=== PATIENT | female | born 1950 | race African-American/Black ===

== ENCOUNTER 2025-10-27 08:45 | Outpatient (CLI) | payer MEDICARE, MEDICAID, SELFPAY ==
--- NOTE | ~2025-10-27 | XR_ITS ---
EXAMINATION: XR ankle RT min 3V, 10/27/2025 9:14 [facility] [employer] [facility] HISTORY: RT MEDIAL MALLEOLUS ANKLE PAIN x1 WK COMPARISON: No comparisons available. Findings: No acute fracture or malalignment. Calcaneal spur. Severe Achilles enthesopathy. Soft tissues unremarkable. Impression: No acute fracture or malalignment. Reviewed, dictated and finalized at location [facility] Impression: No acute fracture or malalignment.
== END 2025-10-27 08:46 | disposition home or self-care (01) ==
PROVIDERS: PCP Internal Medicine Infectious Disease; Visit Provider Internal Medicine Infectious Disease
DX: M25.571 Pain in right ankle and joints of right foot (principal)
CPT/HCPCS: 73610

== ENCOUNTER 2025-11-12 13:32 | Emergency (ER) | payer MEDICARE, MEDICAID, SELFPAY ==
[2025-11-12] VITALS (17 sets, daily range): BP systolic 143–181; BP diastolic 87–100; PULSE 80–119; RESP 12–27; TEMP 36.6; O2SAT 90–98
--- NOTE | ~2025-11-12 | XR_ITS ---
EXAMINATION: XR chest 2V DATE: 11/12/2025 15:02 INDICATION: Cough. Weakness. TECHNIQUE: Frontal and lateral views of the chest were obtained. COMPARISON: Chest x-ray dated 10/14/2012. FINDINGS: Heart size is normal. Severe atherosclerotic aorta. Significant emphysematous changes involving upper two thirds of both lungs. No acute pulmonary findings. IMPRESSION: 1. Significant emphysema involving upper two thirds of both lungs. Severe atherosclerotic aorta. Reviewed, dictated and finalized at location T. PRIMER POWDER BLENDER IMPRESSION: 1. Significant emphysema involving upper two thirds of both lungs. Severe ather osclerotic aorta.
--- NOTE | ~2025-11-12 | CT_ITS ---
EXAMINATION: CTA chest PE abdomen pel DATE: 11/12/2025 16:38 INDICATION: Headache. Cardiomegaly. Shortness of breath. Liver mass suspected. Reason for suspicion of the liver mass is not provided.. TECHNIQUE: Computed tomography angiography (CTA) of the chest was performed with 100 mL Omnipaque-350 intravenous contrast timed to evaluate the pulmonary arteries. Coronal maximum intensity projection 3D-reconstructions were created by the technologist. Computed tomography (CT) of the abdomen and pelvis was performed with intravenous contrast. Automated exposure control and iterative reconstruction technique were employed. The dose-length product was 639.05 mGy-cm. COMPARISON: Chest x-ray dated 11/12/2025. No prior imaging studies of the abdomen and pelvis are available. FINDINGS: The chest, severe centrilobular pattern of emphysema of lungs. 3 cm size bulla is noted in the left upper lobe. No consolidation. Prominent central pulmonary arteries due to pulmonary arterial hypertension. No evidence of pulmonary emboli. Severe atherosclerosis of thoracic aorta. Below the diaphragm, normal size liver and the spleen. The gallbladder, bile ducts, pancreas and kidneys do not show focal lesions. Significant calcific atherosclerotic changes at the origin of right renal artery. Midline paraumbilical hernia is noted containing a loop of transverse colon. No evidence of bowel obstruction. No inflammatory changes in the pelvis. Normal size appendix. IMPRESSION: 1. No evidence of pulmonary emboli. Evidence of severe emphysema of lungs with pulmonary arterial hypertension. 2. Significant atherosclerotic changes of thoracic aorta. 3. No acute findings in the upper abdomen and pelvis. Midline paraumbilical hernia containing a loop of transverse colon. No evidence of bowel obstruction. 4. Normal size liver and spleen without focal lesions of the liver. Reviewed, dictated and finalized at location T. T EXPERIENCE SPECIALIST IMPRESSION: 1. No evidence of pulmonary emboli. Evidence of severe emphysema of lungs with pulmonary arterial hypertension. 2. Significant atherosclerotic changes of thoracic aorta. 3. No acute findings in the upper abdomen and pelvis. Midline paraumbilical her nancy containing a loop of transverse colon. No evidence of bowel obstruction. 4. Normal size liver and spleen without focal lesions of the liver.
--- OUTSIDE RECORDS SUMMARY | 2025-11-12 13:34 | XMS_ITS | Encounter Summary ---
Author Organization [facility] Address [address] [place] [address] Care Team Providers Care Juvenile Justice Officer Name Role Phone Racheal Centeno MD Primary Care Provider Encounter Details Date Type Department Care Team (Late st Contact Info) Description 01/06/2025 Telephone [facility] - Dermatology [address] [place] [address], [place] [phone] Deonte Merrill MD [address] [place] [address] 3 [place] [address] Social History Tobacco Use Types Packs/Day Years Used Date Smoking Tobacco: Former Cigarettes 0 Q uit: 12/20/2011 Alcohol Use Standard Drinks/Week Comments No 0 (1 standard drink = 0.6 oz pur e alcohol) Comments Unknown Sex and Gender Information Value Date Recorded Sex Assigned at Not on file Legal Sex Female 6:21 PM FAMILY SPECIALIST Gender Identity Not on file Sexual Orientation Not on file documented as of this encounter Progress Notes * Jen Fowler - 07/26/2025 2:37 PM CDT Medication Prior Authorization: Medication: Dupixent 300mg/2ml pen Status: Approved 07/20/25 through 11/22/25 Submitted via: Cover My Meds (Mcclelland: [id number]) Insurance: [employer] (p: [phone]) (f: [phone]) Case/Reference number: ID: [id number] RX Card Billing Info: BIN: [id number] PCN: [id number] GROUP: COS ID: [id number] JOSIANE approval notice uploaded to media tab. Routed approval details to [facility] Specialty. Jen Fowler- Pharmacy Business Office Technology Instructor (Dermatology) * Jen Fowler - 01/06/2025 2:28 PM CST Medication Prior Authorization: Medication: Dupixent 300mg/2ml pen Status: Approved 01/06/25 through 07/06/25 Submitted via: Cover My Meds (Mcclelland: [id number]) Insurance: [employer] (p: [phone]) (f: [phone]) Case/Reference number: ID: [id number] RX Card Billing Info: BIN: [id number] PCN: [id number] GROUP: COS ID: [id number] PA approval notice uploaded to media tab. Routed approval details to [facility] Specialty and Aria. Jen Fowler- Pharmacy Business Office Technology Instructor (Dermatology) LY SPECIALIST documented in this encounter Miscellaneous Notes * Telephone Encounter - Jen Fowler - 07/20/2025 1:16 PM CDT PA submitted forcontinuation of therapy Dupixent 300mg/2ml pen maintenance dose of 300mg every 2 weeks via [employer] [facility] currently waiting on decision. Mcclelland: [id number] Provider:[id number] Jen Fowler (Jonak) [facility] - Pharmacy Business Office Technology Instructor * Telephone Encounter - Jen Fowler - 01/06/2025 2:05 PM CST PA submitted fornew start Dupixent 300mg/2ml pen for loading dose of 600mg and maintenance dose of 300mg every 2 weeks via [employer] [facility] [employer] [facility] currently waiting on decision. Mcclelland: [id number] Provider:[id number] (Desirae) Jen Fowler [employer]izer - Pharmacy Business Office Technology Instructor LY SPECIALIST documented in this encounter Plan of Treatment Upcoming Encounters Date Type Department Care Team (Late st Contact Info) Description 03/28/2026 9:00 AM CDT Office Visit [facility] - Dermatology [address] [place] [address], [place] [address] Deonte Merrill MD [address] [place] [address] 3 [place] [phone] documented as of this encounter Visit Diagnoses Not on filedocumented in this encounter Care Teams Juvenile Justice Officer Relationship Specialty [place] [address] [place] [phone] PCP - General Gastroenterology 07/12/25 documented as of this encounter
--- OUTSIDE RECORDS SUMMARY | 2025-11-12 13:34 | XMS_ITS | Clinical Summary ---
Author Organization [facility] Address [address] [place] [address] Care Team Providers Care Jewel Stringer Name Role Phone Racheal Centeno MD Primary Care Provider [phone] Source Comments [facility],non-owned Affiliates and Associated Physician Practices is amultiple site organization consisting of ambulatory clinics and hospital sitesin [place], [place], [place] and [place]. This disclosure is being madepursuant to the Care Everywhere program and may not contain all information available regarding this patient. Last updated 18.[facility] Allergies Active Allergy Reactions Criticality Noted Date Comments Sulfa Drugs Swelling Low 01/20/2015 Medications * Be aware that medications may not be up to date on this document. Alwaysverify current medications with the patient. amLODIPine (Norvasc) 10 MG tablet Take 1 (one) tablet by mouth once daily 3 Active atorvastatin (Lipitor) 10 MG tablet TAKE ONE TABLET BY MOUTH ONCE DAILY AT DINNER. 5 Active Breo Ellipta 200-25 MCG/ACT inhaler INHALE ONE PUFF BY MOUTH ONCE DAILY DIRECTED 5 Active hydrOXYzine HCl (Atarax) 10 MG tablet Take 1 (one) tablet by mouth 2 times daily 4 Active linaGLIPtin (Tradjenta) 5 MG tablet TAKE 1 TABLET BY MOUTH DAILY WITH A MEAL 3 Active lisinopril (Prinivil; Zestril) 20 MG tablet Take 1 (one) tablet by mouth once daily 3 Active clobetasol (Temovate) 0.05 % ointmentIndica tions:Prurigo nodularis Apply to rash on the trunk and extremities twice daily as needed. Use for a maximum for 2 weeks then take a 3-4 day break before resuming. Avoid face and groin. 60 g 5 5 Active dupilumab (Dupixent) 300 MG/2ML prefilled penIndications :Prurigo nodularis Inject 2 mL subcutaneously every 14 days Starting on day 14 4 mL 11 5 Active Social History Tobacco Use Types Packs/Day Years Used Date Smoking Tobacco: Former Cigarettes 0 Q uit: 12/20/2011 Alcohol Use Standard Drinks/Week Comments No 0 (1 standard drink = 0.6 oz pur e alcohol) Comments Unknown Sex and Gender Information Value Date Recorded Sex Assigned at Not on file Legal Sex Female 6:21 PM LARD MIXER Gender Identity Not on file Sexual Orientation Not on file Last Filed Vital Signs Vital Sign Reading Time Taken Comments Blood Pressure 138/89 01/20/2015 10:14 AM LARD MIXER Pulse 86 01/20/2015 10:45 AM LARD MIXER Temperature 36.7 C (98.1 F) 01/20/2015 10:14 AM LARD MIXER Respiratory Rate 16 01/20/2015 10:45 AM LARD MIXER Oxygen Saturation 98% 01/20/2015 10:14 AM LARD MIXER Inhaled Oxygen Concentration - - Weight 75.8 kg (167 lb) 01/20/2015 10:14 AM LARD MIXER Height 162.6 cm (5' 4) 01/20/2015 10:14 AM LARD MIXER Body Mass Index 28.67 01/20/2015 10:14 AM LARD MIXER Plan of Treatment Upcoming Encounters Date Type Department Care Team (Late st Contact Info) Description 03/28/2026 9:00 AM CDT Office Visit [facility] - Dermatology [address] [place] [address], [place] [phone] Deonte Merrill MD [address] [place] [address] 3 [place] [address] Health Maintenance Due Date Last Done Comments COLOGUARD (AGES 45-75) - COLON CA SCREENING 1951 COLON MONITORING 1951 COLONOSCOPY - COLON CA SCREENING 1950 CT COLONOGRAPHY - COLON CA SCREENING 1950 Colorectal Cancer Screening 1950 FIT - COLON CA SCREENING 1950 FLEX SIG - COLON CA SCREENING 1950 MAMMOGRAM 1950 HEPATITIS C SCREENING 04/08/1969 DTAP/TDAP/TD VACCINES (1 - Tdap) 1970 PNEUMOCOCCAL VACCINE 50+ (1 of 1 - PCV) 2001 ZOSTER VACCINE (1 of 2) 2001 DEPRESSION SCREENING 11/23/2024 MEDICARE AWV CALENDAR YEAR 2024 COVID-19 VACCINE ( season) 2025 11/05/2021, 03/08/2021, 02/08/2021 INFLUENZA VACCINE (#1) 2025 , 09/20/2020, 02/01/2020, Additional history exists Respiratory Syncytial Virus (RSV) Vaccine Pt: or over 60 yrs (1 - 1-dose 75+ series) 2026 BONE DENSITY TESTING Completed 03/13/2025 HEPATITIS B VACCINE Aged Out No longe r eligible based on patient's age to complete this topic HIB VACCINE Aged Out No longer eligi ble based on patient's age to complete this topic HPV VACCINE Aged Out No longer eligi ble based on patient's age to complete this topic MENINGOCOCCAL (Group B) VACCINE SHARED DECISION-MAKING Aged Out No longer eligible based on patient's age to complete this topic MENINGOCOCCAL GROUPS A/C/Y/W VACCINE Aged Out No longer eligible based on patient's age to complete this topic Insurance MANAGED MEDICARE ADV Care Teams Jewel Stringer Relationship Specialty Start Date End Date Racheal Centeno MD [address] [place] [address] PCP - General Gastroenterology 07/12/25
--- OUTSIDE RECORDS SUMMARY | 2025-11-12 13:34 | XMS_ITS | Data Portability ---
Author Organization [facility] ROSIORoberto Nunez Address [address] [facility] [place] [address] Care Team Providers Care Carbon Grinder Name Role Phone U DERMATOLOGY [employer] SHILPI SWAN Head [employer]'S [employer] Coach Unavailable Assessment No assessment recorded. Plan of Treatment Reminders Order Date Submit Date Provider Last Modified By Organization Details Last Modified Time Details Appointments ANY 15 2025 11:15A Guillermo Miranda MD Not available Not available Not available Lab HbA1c (hemoglo bin A1c), blood 2024 026 [employer] [facility], [address] [place] [address], [address], [place], [address], 11/02/2025 12:25:25 lipid panel, serum 2024 026 [email or web address] [facility], [address] [place] [address], [facility] [address], [place], [address], 11/02/2025 12:25:25 uric acid, serum or plasma 2024 025 JAYLEN [facility], [address] [place] [address], [address], [place], [address], 10/06/2025 08:40:09 CBC w/ auto diff 2024 025 JAYLEN [facility], [address] [place] [address], [facility] [address], [place], [address], 10/06/2025 08:40:10 HbA1c (hemoglo bin A1c), blood 2024 025 JAYLEN MARINELLI, [address], [address], [place], [address], 07/06/2025 13:13:51 lipid panel, serum 2024 025 JAYLEN [facility]MOSILLORP, [address], [address], [place], [address], 07/06/2025 13:13:48 albumin/ creatini ne, mass ratio, urine 2024 025 JAYLEN MARINELLI, [address], [address], [place], [address], 07/06/2025 13:13:46 microalb umin/cre atinine, mass ratio, urine 2024 025 JAYLEN MARINELLI, [address], [address], [place], [address], 08/02/2025 13:17:19 CBC w/ auto diff 2024 025 JAYLEN HERMOSILLOANNAMARIE, [address], [address], [place], [address], 07/06/2025 13:13:54 urinalys is macro (dipstic k) panel, urine 2024 025 JAYLEN MARINELLI, [address], [address], [place], [address], 07/06/2025 13:13:52 CMP, serum or plasma 2024 025 JAYLEN HERMOSILLOANNAMARIE, Judy [address], [address], [place], [address], 07/06/2025 13:13:50 TSH, ultra-se nsitive, serum 2024 025 [place] [facility], [address] [facility], [address], [place], [address], 12/02/2024 08:25:03 Referral diabetic ophthalm ology referral 2024 025 [email or web address], [address], [place], [address], 10/06/2025 13:30:29 dermatol ogist referral 2024 025 [facility], [address] [place], [address], 01/13/2025 17:58:02 Procedures None recorded . Surgeries None recorded . Imaging XR, ankle - Pain, medial malleolu s 2024 025 [facility] (Imaging), [address] [place], [place] [address] [address] [place] [address], [address], 10/27/2025 10:30:09 Medication Orders meloxica m 7.5 mg tablet 2024 025 [facility] [id number] In [facility], [address] [facility], [place], [address], 10/05/2025 12:32:09 ketorola c 60 mg/2 mL intramus cular solution 2024 025 [email or web address] Not available 11/02/2025 11:51:44 Patient TargetsNo targets recorded. Patient Instructions Encounter Date Encounter Id Patient Instructions Last Modified By Organization Details Last Modified Time 03/16/2025 [id number] learning about high blood pressure [email or web address] Not available 03/16/2025 11:40:13 chronic obstructive pulmonary disease (COPD): care instructions [email or web address] Not available 03/16/2025 11:40:13 learning about copd and how to prevent lung infections [email or web address] Not available 03/16/2025 11:40:13 07/05/2025 [id number] learning about type 2 diabetes oajao Not available 07/05/2025 14:44:39 type 2 diabetes: care instructions oajao Not available 07/05/2025 14:44:39 learning about high blood pressure oajao Not available 07/05/2025 14:44:39 chronic obstructive pulmonary disease (COPD): care instructions oajao Not available 07/05/2025 16:56:50 learning about copd and how to prevent lung infections oajao Not available 07/05/2025 16:56:50 Labs Dermatolog y follow up Dentist Ophthalmology Follow up in 4 months for a MAWV oajao Not available 07/05/2025 14:45:32 10/05/2025 [id number] A healthy lifestyle: care instructions oajao Not available 10/05/2025 12:12:00 Ophthalmology as referred Xray Labs CT scan report from [facility] Note from Dr Swan (Nephrology) ER report from [facility] Meloxicam Follow up in 4 weeks oajao Not available 10/05/2025 14:10:25 11/02/2025 [id number] learning about type 2 diabetes oajao Not available 11/02/2025 12:24:53 type 2 diabetes: care instructions oajao Not available 11/02/2025 12:24:53 advance care planning: care instructions oajao Not available 11/02/2025 12:51:34 preventing falls : care instructions oajao Not available 11/02/2025 12:51:34 Quitting Tobacco : Care Instructions oajao Not available 11/02/2025 12:51:34 Medicare Wellnes s Preventive Checklist oajao Not available 11/02/2025 12:51:34 eating healthy foods: care instructions oajao Not available 11/02/2025 12:51:34 AD8 Dementia Screening Interview oajao Not available 11/02/2025 12:51:34 August 28, 2025 CT scan and ER reports from [facility] MRI (Scheduled) Labs in December, Follow up in 3 months and PRN oajao Not available 11/02/2025 12:26:37 Reason for Referral [employer] Referral for P ruritic disorder of skin Recurrent pruritic lesions Referring Physician: Racheal Centeno, Internal Medicine, Encounter Date: 12/01/2024 Diabetic Ophthalmology Refer ral for Type 2 diabetes mellitus HBA1C 6.9% Referring Physician: Ruth Miranda, Internal Medicine, Encounter Date: 07/05/2025 Results Created Date Observation Date Name Description Value Unit Range Abnormal Flag Note LastModifiedBy Organization Detail LastModifiedTime 12/01/19 25 12/02/2024 TSH TSH 2.020 uIU/m L 0.450- 4.500 Not Available [facility] ([facility]) [address] [place], [address], 12/02/2024 08:25:03 07/05/20 25 07/06/2025 ALBUM IN/CR EATIN INE RATIO ,URIN E creatinine, urine 146.9 mg/dL notest ab. Not Available [facility] ([facility]) [address] [place], [address], 07/06/2025 13:13:46 07/05/20 25 07/06/2025 ALBUM IN/CR EATIN INE RATIO ,URIN E albumin, urine 4.1 ug/mL notest ab. Not Available [facility] ([facility]) [address] [place], [address], 07/06/2025 13:13:46 07/05/20 25 07/06/2025 ALBUM IN/CR EATIN INE RATIO ,URIN E alb/creat ratio 3 mg/g_ creat 0-29 Lilly l: 0 - 29 Moder ately incre ased: 30 - 300 Sever laz incre ased: >300 Not Available [facility] ([facility]) [address] [place], [address], 07/06/2025 13:13:46 07/05/20 25 07/06/2025 LIPID PANEL cholesterol, total 127 mg/dL 100-19 9 Not Available [facility] ([facility]) [address] [place], [address], 07/06/2025 13:13:48 07/05/20 25 07/06/2025 LIPID PANEL triglyceride s 95 mg/dL 0-149 Not Available [facility] ([facility]) [address] [facility], [place], [address], 07/06/2025 13:13:48 07/05/20 25 07/06/2025 LIPID PANEL HDL cholesterol 49 mg/dL >39 Not Available [facility] ([facility]) [address] [facility], [place], [address], 07/06/2025 13:13:48 07/05/20 25 07/06/2025 LIPID PANEL VLDL cholesterol richy 18 mg/dL 5-40 Not Available [facility] ([facility]) [address] [facility], [place], [address], 07/06/2025 13:13:48 07/05/20 25 07/06/2025 LIPID PANEL LDL chol calc ([facility]) 60 mg/dL 0-99 Not Available [facility] ([facility]) [address] [facility], [place], [address], 07/06/2025 13:13:48 07/05/20 25 07/06/2025 MICRO SCOPI C EXAMI NATIO N WBC NONE SEEN /hpf 0-5 Not Available [facility] ([facility]) [address] [facility], [place], [address], 07/06/2025 13:13:49 07/05/20 25 07/06/2025 MICRO SCOPI C EXAMI NATIO N RBC 0-2 /hpf 0-2 Not Available [facility] ([facility]) [address] [place], [address], 07/06/2025 13:13:49 07/05/20 25 07/06/2025 MICRO SCOPI C EXAMI NATIO N epithelial cells (non renal) 0-10 /hpf 0-10 Not Available [facility] ([facility]) [address], [place], [address], 07/06/2025 13:13:49 07/05/2007/06/2025 MICRO SCOPI C EXAMI NATIO N casts NONE SEEN /lpf nonese en Not Available [facility] ([facility]) [address], [place], [address], 07/06/2025 13:13:49 07/05/20 25 07/06/2025 MICRO SCOPI C EXAMI NATIO N bacteria NONE SEEN nonese en/few Not Available [facility] ([facility]) [address] [facility], [place], [address], 07/06/2025 13:13:49 07/05/20 25 07/06/2025 CMP14 +EGFR glucose 98 mg/dL 70-99 Not Available [facility] ([facility]) [address] [facility], [place], [address], 07/06/2025 13:13:50 07/05/2007/06/2025 CMP14 +EGFR BUN 22 mg/dL 8-27 Not Available [facility] ([facility]) [address] [facility], [place], [address], 07/06/2025 13:13:50 07/05/2007/06/2025 CMP14 +EGFR creatinine 1.07 mg/dL 0.57-1 .00 above high normal Not Available [facility] ([facility]) [address] [facility], [place], [address], 07/06/2025 13:13:50 07/05/2007/06/2025 CMP14 +EGFR eGFR 55 mL/mi n/1.7 3 >59 below low normal Not Available [facility] ([facility]) [address] [facility], [place], [address], 07/06/2025 13:13:50 07/05/20 25 07/06/2025 CMP14 +EGFR BUN/creatini ne ratio 21 12-28 Not Available [facility] ([facility]) [address] [place], [address], 07/06/2025 13:13:50 07/05/2007/06/2025 CMP14 +EGFR sodium 140 mmol/ L 134-14 4 Not Available [facility] ([facility]) [address] [facility], [place], [address], 07/06/2025 13:13:50 07/05/20 25 07/06/2025 CMP14 +EGFR potassium 3.3 mmol/ L 3.5-5. 2 below low normal Not Available [facility] ([facility]) [address] [facility], [place], [address], 07/06/2025 13:13:50 07/05/20 25 07/06/2025 CMP14 +EGFR chloride 99 mmol/ L 96-106 Not Available [facility] ([facility]) [address] [place], [address], 07/06/2025 13:13:50 07/05/2007/06/2025 CMP14 +EGFR carbon dioxide, total 26 mmol/ L 20-29 Not Available [facility] ([facility]) [address] [place], [address], 07/06/2025 13:13:50 07/05/2007/06/2025 CMP14 +EGFR calcium 9.6 mg/dL 8.7-10 .3 Not Available [facility] ([facility]) [address] [place], [address], 07/06/2025 13:13:50 07/05/20 25 07/06/2025 CMP14 +EGFR protein, total 6.9 g/dL 6.0-8. 5 Not Available [facility] ([facility]) [address] [place], [address], 07/06/2025 13:13:50 07/05/20 25 07/06/2025 CMP14 +EGFR albumin 4.3 g/dL 3.8-4. 8 Not Available [facility] ([facility]) [address] [place], [address], 07/06/2025 13:13:50 07/05/20 25 07/06/2025 CMP14 +EGFR globulin, total 2.6 g/dL 1.5-4. 5 Not Available [facility] ([facility]) [address] [place], [address], 07/06/2025 13:13:50 07/05/2007/06/2025 CMP14 +EGFR bilirubin, total 0.3 mg/dL 0.0-1. 2 Not Available [facility] ([facility]) [address] [place], [address], 07/06/2025 13:13:50 07/05/20 25 07/06/2025 CMP14 +EGFR alkaline phosphatase 137 IU/L 44-121 above high normal Not Available [facility] ([facility]) [address] [place], [address], 07/06/2025 13:13:50 07/05/20 25 07/06/2025 CMP14 +EGFR AST (SGOT) 16 IU/L 0-40 Not Available [facility] ([facility]) [address] [place], [address], 07/06/2025 13:13:50 07/05/20 25 07/06/2025 CMP14 +EGFR ALT (SGPT) 16 IU/L 0-32 Not Available [facility] ([facility]) [address] [place], [address], 07/06/2025 13:13:50 07/05/20 25 07/06/2025 HEMOG LOBIN A1C hemoglobin A1C 6.5 % 4.8-5. 6 above high normal Predi abete s: 5.7 - 6.4 Diabe tal: >6.4 Glyce luis manuel contr ol for adult s with diabe tal: <7.0 Not Available [facility] ([facility]) [address] [facility], [place], [address], 07/06/2025 13:13:51 07/05/20 25 07/06/2025 URINA LYSIS , ROUTI NE specific gravity 1.018 1.005- 1.030 Not Available [facility] ([facility]) [address] [facility], [place], [address], 07/06/2025 13:13:52 07/05/2007/06/2025 URINA LYSIS , ROUTI NE pH 5.5 5.0-7. 5 Not Available [facility] ([facility]) [address] [facility], [place], [address], 07/06/2025 13:13:52 07/05/2007/06/2025 URINA LYSIS , ROUTI NE urine-color YELLOW yellow Not Available [facility] ([facility]) [address] [place], [address], 07/06/2025 13:13:52 07/05/2007/06/2025 URINA LYSIS , ROUTI NE appearance CLEAR clear Not Available [facility] ([facility]) [address] [facility], [place], [address], 07/06/2025 13:13:52 07/05/2007/06/2025 URINA LYSIS , ROUTI NE WBC esterase 1+ negati ve abnormal Not Available [facility] ([facility]) [address] [place], [address], 07/06/2025 13:13:52 07/05/2007/06/2025 URINA LYSIS , ROUTI NE protein NEGATI VE negati ve/tra ce Not Available [facility] ([facility]) [address] [place], [address], 07/06/2025 13:13:52 07/05/20 25 07/06/2025 URINA LYSIS , ROUTI NE glucose NEGATI VE negati ve Not Available [facility] ([facility]) [address] [place], [address], 07/06/2025 13:13:52 07/05/20 25 07/06/2025 URINA LYSIS , ROUTI NE ketones NEGATI VE negati ve Not Available [facility] ([facility]) [address] [place], [address], 07/06/2025 13:13:52 07/05/2007/06/2025 URINA LYSIS , ROUTI NE occult blood NEGATI VE negati ve Not Available [facility] ([facility]) [address] [place], [address], 07/06/2025 13:13:52 07/05/20 25 07/06/2025 URINA LYSIS , ROUTI NE bilirubin NEGATI VE negati ve Not Available [facility] ([facility]) [address] [place], [address], 07/06/2025 13:13:52 07/05/20 25 07/06/2025 URINA LYSIS , ROUTI NE urobilinogen ,semi-qn 0.2 mg/dL 0.2-1. 0 Not Available [facility] ([facility]) [address] [place], [address], 07/06/2025 13:13:52 07/05/20 25 07/06/2025 URINA LYSIS , ROUTI NE nitrite, urine NEGATI VE negati ve Not Available [facility] ([facility]) [address] [place], [address], 07/06/2025 13:13:52 07/05/20 25 07/06/2025 URINA LYSIS , ROUTI NE microscopic examination SEE BELOW: Micro scopi c was indic ated and was perfo rmed. Not Available [facility] ([facility]) [address] [facility], [place], [address], 07/06/2025 13:13:52 07/05/2007/06/2025 CBC WITH DIFFE RENTI AL/PL ATELE T WBC 6.7 x10e3 /uL 3.4-10 .8 Not Available [facility] ([facility]) [address] [facility], [place], [address], 07/06/2025 13:13:54 07/05/20 25 07/06/2025 CBC WITH DIFFE RENTI AL/PL ATELE T RBC 4.96 x10e6 /uL 3.77-5 .28 Not Available [facility] ([facility]) [address] [facility], [place], [address], 07/06/2025 13:13:54 07/05/20 25 07/06/2025 CBC WITH DIFFE RENTI AL/PL ATELE T hemoglobin 13.8 g/dL 11.1-1 5.9 Not Available [facility] ([facility]) [address] [facility], [place], [address], 07/06/2025 13:13:54 07/05/20 25 07/06/2025 CBC WITH DIFFE RENTI AL/PL ATELE T hematocrit 43.1 % 34.0-4 6.6 Not Available [facility] ([facility]) [address] [place], [address], 07/06/2025 13:13:54 07/05/2007/06/2025 CBC WITH DIFFE RENTI AL/PL ATELE T MCV 87 fL 79-97 Not Available [facility] ([facility]) [address] [facility], [place], [address], 07/06/2025 13:13:54 07/05/20 25 07/06/2025 CBC WITH DIFFE RENTI AL/PL ATELE T MCH 27.8 pg 26.6-3 3.0 Not Available [facility] ([facility]) [address] [facility], [place], [address], 07/06/2025 13:13:54 07/05/20 25 07/06/2025 CBC WITH DIFFE RENTI AL/PL ATELE T MCHC 32.0 g/dL 31.5-3 5.7 Not Available [facility] ([facility]) [address] [facility], [place], [address], 07/06/2025 13:13:54 07/05/20 25 07/06/2025 CBC WITH DIFFE RENTI AL/PL ATELE T RDW 13.2 % 11.7-1 5.4 Not Available [facility] ([facility]) [address] [facility], [place], [address], 07/06/2025 13:13:54 07/05/20 25 07/06/2025 CBC WITH DIFFE RENTI AL/PL ATELE T platelets 260 x10e3 /uL 150-45 0 Not Available [facility] ([facility]) [address] [facility], [place], [address], 07/06/2025 13:13:54 07/05/20 25 07/06/2025 CBC WITH DIFFE RENTI AL/PL ATELE T neutrophils 45 % notest ab. Not Available [facility] ([facility]) [address] [facility], [place], [address], 07/06/2025 13:13:54 07/05/20 25 07/06/2025 CBC WITH DIFFE RENTI AL/PL ATELE T lymphs 44 % notest ab. Not Available [facility] ([facility]) [address] [facility], [place], [address], 07/06/2025 13:13:54 07/05/20 25 07/06/2025 CBC WITH DIFFE RENTI AL/PL ATELE T monocytes 9 % notest ab. Not Available [facility] ([facility]) [address] [facility], [place], [address], 07/06/2025 13:13:54 07/05/20 25 07/06/2025 CBC WITH DIFFE RENTI AL/PL ATELE T eos 1 % notest ab. Not Available [facility] ([facility]) [address] [facility], [place], [address], 07/06/2025 13:13:54 07/05/20 25 07/06/2025 CBC WITH DIFFE RENTI AL/PL ATELE T basos 1 % notest ab. Not Available [facility] ([facility]) [address] [facility], [place], [address], 07/06/2025 13:13:54 07/05/20 25 07/06/2025 CBC WITH DIFFE RENTI AL/PL ATELE T neutrophils (absolute) 3.0 x10e3 /uL 1.4-7. 0 Not Available [facility] ([facility]) [address] [facility], [place], [address], 07/06/2025 13:13:54 07/05/20 25 07/06/2025 CBC WITH DIFFE RENTI AL/PL ATELE T lymphs (absolute) 3.0 x10e3 /uL 0.7-3. 1 Not Available [facility] ([facility]) [address] [facility], [place], [address], 07/06/2025 13:13:54 07/05/20 25 07/06/2025 CBC WITH DIFFE RENTI AL/PL ATELE T monocytes(ab solute) 0.6 x10e3 /uL 0.1-0. 9 Not Available [facility] ([facility]) [address] [facility], [place], [address], 07/06/2025 13:13:54 07/05/20 25 07/06/2025 CBC WITH DIFFE RENTI AL/PL ATELE T eos (absolute) 0.1 x10e3 /uL 0.0-0. 4 Not Available [facility] ([facility]) [address] [facility], [place], [address], 07/06/2025 13:13:54 07/05/20 25 07/06/2025 CBC WITH DIFFE RENTI AL/PL ATELE T baso (absolute) 0.0 x10e3 /uL 0.0-0. 2 Not Available [facility] ([facility]) [address] [facility], [place], [address], 07/06/2025 13:13:54 07/05/20 25 07/06/2025 CBC WITH DIFFE RENTI AL/PL ATELE T immature granulocytes 0 % notest ab. Not Available [facility] ([facility]) [address] [facility], [place], [address], 07/06/2025 13:13:54 07/05/20 25 07/06/2025 CBC WITH DIFFE RENTI AL/PL ATELE T immature grans (abs) 0.0 x10e3 /uL 0.0-0. 1 Not Available [facility] ([facility]) [address] [facility], [place], [address], 07/06/2025 13:13:54 08/01/20 25 08/02/2025 ALBUM IN/CR EAT RATIO , RANDO M UR creatinine, urine 126.9 mg/dL notest ab. Not Available [facility] ([facility]) [address] [facility], [place], [address], 08/02/2025 13:17:19 08/01/20 25 08/02/2025 ALBUM IN/CR EAT RATIO , RANDO M UR albumin, urine 3.8 ug/mL notest ab. Not Available [facility] ([facility]) [address] [facility], [place], [address], 08/02/2025 13:17:19 08/01/20 25 08/02/2025 ALBUM IN/CR EAT RATIO , RANDO M UR alb/creat ratio 3 mg/g_ creat 0-29 Lilly l: 0 - 29 Moder ately incre ased: 30 - 300 Sever lza incre ased: >300 Not Available [facility] ([facility]) [address] [facility], [place], [address], 08/02/2025 13:17:19 10/05/20 25 10/06/2025 URIC ACID uric acid 6.6 mg/dL 3.1-7. 9 Thera patricei c josué t for gout patie nts: <6.0 Not Available [facility] ([facility]) [address] [facility], [place], [address], 10/06/2025 08:40:09 10/05/20 25 10/06/2025 CBC WITH DIFFE RENTI AL/PL ATELE T WBC 8.5 x10e3 /uL 3.4-10 .8 Not Available [facility] ([facility]) [address] [facility], [place], [address], 10/06/2025 08:40:10 10/05/20 25 10/06/2025 CBC WITH DIFFE RENTI AL/PL ATELE T RBC 5.03 x10e6 /uL 3.77-5 .28 Not Available [facility] ([facility]) [address] [place], [address], 10/06/2025 08:40:10 10/05/20 25 10/06/2025 CBC WITH DIFFE RENTI AL/PL ATELE T hemoglobin 14.0 g/dL 11.1-1 5.9 Not Available [facility] ([facility]) [address] [place], [address], 10/06/2025 08:40:10 10/05/20 25 10/06/2025 CBC WITH DIFFE RENTI AL/PL ATELE T hematocrit 43.6 % 34.0-4 6.6 Not Available [facility] ([facility]) [address] [place], [address], 10/06/2025 08:40:10 10/05/20 25 10/06/2025 CBC WITH DIFFE RENTI AL/PL ATELE T MCV 87 fL 79-97 Not Available [facility] ([facility]) [address] [facility], [place], [address], 10/06/2025 08:40:10 10/05/20 25 10/06/2025 CBC WITH DIFFE RENTI AL/PL ATELE T MCH 27.8 pg 26.6-3 3.0 Not Available [facility] ([facility]) [address] [facility], [place], [address], 10/06/2025 08:40:10 10/05/20 25 10/06/2025 CBC WITH DIFFE RENTI AL/PL ATELE T MCHC 32.1 g/dL 31.5-3 5.7 Not Available [facility] ([facility]) [address] [facility], [place], [address], 10/06/2025 08:40:10 10/05/20 25 10/06/2025 CBC WITH DIFFE RENTI AL/PL ATELE T RDW 13.6 % 11.7-1 5.4 Not Available [facility] ([facility]) [address] [facility], [place], [address], 10/06/2025 08:40:10 10/05/20 25 10/06/2025 CBC WITH DIFFE RENTI AL/PL ATELE T platelets 278 x10e3 /uL 150-45 0 Not Available [facility] ([facility]) [address] [facility] [facility], [place], [address], 10/06/2025 08:40:10 10/05/20 25 10/06/2025 CBC WITH DIFFE RENTI AL/PL ATELE T neutrophils 51 % notest ab. Not Available [facility] ([facility]) [address] [facility], [place], [address], 10/06/2025 08:40:10 10/05/20 25 10/06/2025 CBC WITH DIFFE RENTI AL/PL ATELE T lymphs 37 % notest ab. Not Available [facility] ([facility]) [address] [facility], [place], [address], 10/06/2025 08:40:10 10/05/20 25 10/06/2025 CBC WITH DIFFE RENTI AL/PL ATELE T monocytes 10 % notest ab. Not Available [facility] ([facility]) [address] [facility], [place], [address], 10/06/2025 08:40:10 10/05/2010/06/2025 CBC WITH DIFFE RENTI AL/PL ATELE T eos 1 % notest ab. Not Available [facility] ([facility]) [address] [facility], [place], [address], 10/06/2025 08:40:10 10/05/20 25 10/06/2025 CBC WITH DIFFE RENTI AL/PL ATELE T basos 1 % notest ab. Not Available [facility] ([facility]) [address] [facility], [place], [address], 10/06/2025 08:40:10 10/05/20 25 10/06/2025 CBC WITH DIFFE RENTI AL/PL ATELE T neutrophils (absolute) 4.4 x10e3 /uL 1.4-7. 0 Not Available [facility] ([facility]) [address] [facility], [place], [address], 10/06/2025 08:40:10 10/05/20 25 10/06/2025 CBC WITH DIFFE RENTI AL/PL ATELE T lymphs (absolute) 3.1 x10e3 /uL 0.7-3. 1 Not Available [facility] ([facility]) [address] [facility], [place], [address], 10/06/2025 08:40:10 10/05/20 25 10/06/2025 CBC WITH DIFFE RENTI AL/PL ATELE T monocytes(ab solute) 0.9 x10e3 /uL 0.1-0. 9 Not Available [facility] ([facility]) [address] [facility], [place], [address], 10/06/2025 08:40:10 10/05/20 25 10/06/2025 CBC WITH DIFFE RENTI AL/PL ATELE T eos (absolute) 0.1 x10e3 /uL 0.0-0. 4 Not Available [facility] ([facility]) [address] [facility], [place], [address], 10/06/2025 08:40:10 10/05/20 25 10/06/2025 CBC WITH DIFFE RENTI AL/PL ATELE T baso (absolute) 0.0 x10e3 /uL 0.0-0. 2 Not Available [facility] ([facility]) [address] [facility], [place], [address], 10/06/2025 08:40:10 10/05/20 25 10/06/2025 CBC WITH DIFFE RENTI AL/PL ATELE T immature granulocytes 0 % notest ab. Not Available [facility] ([facility]) [address] [facility], [place], [address], 10/06/2025 08:40:10 10/05/20 25 10/06/2025 CBC WITH DIFFE RENTI AL/PL ATELE T immature grans (abs) 0.0 x10e3 /uL 0.0-0. 1 Not Available [facility] ([facility]) [address] [facility], [place], [address], 10/06/2025 08:40:10 01/28/20 25 01/16/2025 MAMMO , scree ishmael, digit al, bilat eral No observ ation record ed. [email or web address] Florenciojustine Cason (Radiology) [address] [place], [address], 01/28/2025 23:24:14 02/26/20 25 02/25/2025 XR, chest No observ ation record ed. [address] [place], [address], 02/28/2025 16:30:44 02/26/20 25 02/25/2025 CT, angio gram, chest , w/ contr ast No observ ation record ed. [facility] [address] [place], [address], 07/05/2025 14:49:24 03/13/20 25 03/13/2025 bone densi ty No observ ation record ed. [address], [place], [address], 07/05/2025 14:41:39 10/27/20 25 10/27/2025 XR, ankle No observ ation record ed. [facility] [address], [place], [address], 11/06/2025 09:59:07 Result Notes None recorded. Problems Name Problem SNOMED Code Status Onset Date Resolution Date Notes Provider Name and Address Organization Details Recorded Time Osteoarthriti s of hip 907329052 Active Not Available [facility] 3 16:48:03 Chronic obstructive pulmonary disease 08076156 Active Not Available [facility] 3 16:48:03 Essential hypertension 34710749 Active Not Available [facility] 3 16:48:03 Acute exacerbation of chronic obstructive pulmonary disease 891270198 Active Ruth Miranda MD Attn: Accounting ,[address] [facility], [place], [address] , [facility] 5 14:19:36 Dyspnea 802307503 Active Ruth Miranda MD Attn: Accounting ,[address] [facility], [place], [address] , [facility] 5 14:19:36 Hypertensive disorder 44466059 Active Ruth Miranda MD Attn: Accounting ,[address] [facility], [place], [address] , [place] [facility] 5 14:19:36 Osteoarthriti s of knee 947085295 Active Not Available [facility] 3 16:48:03 Type 2 diabetes mellitus 10088842 Active 2019 Not Available [facility] 3 16:48:03 Pruritic disorder of skin Active 2023 Racheal Centeno MD Attn: Accounting ,[address] [facility], [place], [address] , [place] [facility] 4 16:04:45 Venous insufficiency of lower limb 419756541 Active 2023 Racheal Centeno MD Attn: Accounting ,[address] [facility], [place], [address] , [place] [facility] 4 16:05:13 Disorder of skin 09521394 Active 2023 Racheal Centeno MD Attn: Accounting ,[address] [facility], [place], [address] , [place] [facility] 4 16:13:51 Screening for malignant neoplasm of breast Active 2023 Racheal Centeno MD Attn: Accounting ,[address] [facility], [place], [address] , [place] [facility] 4 12:18:31 History of polyp of colon 280278071 Active 2024 Racheal Centeno MD Attn: Accounting ,[address] [facility], [place], [address] , [place] [facility] 5 10:18:25 At increased risk of osteoporosis 001654359 Active 2024 Racheal Centeno MD Attn: Accounting ,[address] [facility], [place], [address] , [place] [facility] 5 10:19:47 Postmenopausa l osteopenia 821795340 Active 2024 Racheal Centeno MD Attn: Accounting ,[address] [facility], [place], [address] , [place] [facility] 5 17:16:05 Prurigo nodularis 57189151 Active 2024 Ruth Miranda MD Attn: Accounting ,[address] [facility], [place], [address] , [place] [facility] 16:51:40 Osteopenia 997383237 Active 2024 Ruth Miranda MD Attn: Accounting ,[address] [facility], [place], [address] , [place] [facility] 16:55:43 Chronic kidney disease stage 3A 398054399 Active 2024 Ruth Miranda MD Attn: Accounting ,[address] [facility], [place], [address] , [place] [facility] 13:32:23 Notes:Some problems listed i n Documents: #[id number], #[id number], #[id number] could not be added to this patient's chart. Please review these documents and add these problems to the patient's chart manually as needed. Problem Notes None recorded. Procedures Surgical History Date Name Laterality Status Provider Name and Address Organization Details Recorded Time Diabetic Foot Exam completed Ruth Miranda MD Attn: Accounting,[address] [facility], [place], [address], [place] [facility] 07/05/2025 14:40:19 Imaging Results None recorded. Procedure Notes None recorded. Medical Equipment None Reported. Allergies Allergen ID Allergen Name Allergen Category Reaction Reaction Severity Criticality Documentation Date Start Date Code Code System Note Provider Name and Address Organization Details Recorded Time 19480125 Product containin g penicilli n (product) medicatio n dizziness mild Not available 07/05/2025 23521 8001 SNOMED Ruth Miranda MD Attn: Accountin g,[address] [facility], [place], [address], [place] [facility] 14:19:00 577964 folic acid medicatio n Not available Not available Not available 10/04/20252024 4511 RxNorm Not Available jaylen - External Data Service - prod 5 17:01:45 52866 Substance with sulfonami de structure and antibacte rial mechanism of action (substanc e) medicatio n Not available Not available Not available 01/30/2015 32529 8003 SNOMED Cam Alvarez MA [facility], [place] - [facility] 5 16:17:57 Medications Name Sig Start Date Stop Date Status Note LastModified by Organization Details LastModified Time Prescript ion - Prior Authoriza tion Request 07/01 completed Not Available Not Available Not Available lancets Use to test blood sugar level once daily. 04/11 completed Not Available Not Available Not Available amoxicill in 500 mg capsule Take 1 capsule 3 times a day by oral route as directed for 7 days. 05/29 completed Not Available Not Available Not Available metformin 500 mg tablet Take 1 tablet twice a day by oral route as directed for 30 days. 11/30 completed Not Available Not Available Not Available Qvar 80 mcg/actua tion Metered Aerosol oral inhaler INHALE TWO PUFFS BY MOUTH TWICE A DAY 05/29 completed Not Available Not Available Not Available prednison e 10 mg tablet 05/29 completed Not Available Not Available Not Available clindamyc in HCl 300 mg capsule TAKE 1 CAPSULE BY MOUTH EVERY 6 HOURS FOR 7 DAYS 09/28 completed Not Available Not Available Not Available albuterol sulfate 2.5 mg/3 mL (0.083 %) solution for nebulizat ion INHALE CONTENTS OF ONE VIAL VIA NEBULIZE R THREE TIMES A DAY. 04/11 completed Not Available Not Available Not Available triamcino lone acetonide 0.5 % topical cream APPLY TO THE AFFECTED AREA OF THE SKIN TWICE DAILY NEEDED 04/11 completed Not Available Not Available Not Available atorvasta tin 10 mg tablet One PO daily 2024 active Not Available Not Available Not Avai lable azithromy jake 250 mg tablet TAKE 2 TABLETS BY MOUTH TODAY, THEN TAKE 1 TABLET DAILY FOR 4 DAYS 11/07 completed Not Available Not Available Not Available citalopra m 10 mg tablet 11/30 completed Not Available Not Available Not Available hydrocodo ne 5 mg-acetam inophen 325 mg tablet active Not Available Not Available Not Available lisinopri l 20 mg tablet TAKE 1 TABLET BY MOUTH EVERY DAY active Not Available Not Available No t Available prednison e 20 mg tablet TAKE 3 TABLETS BY MOUTH ONCE DAILY 10/10 completed Not Available Not Available Not Available metformin 850 mg tablet TAKE 1 TABLET BY MOUTH TWICE A DAY 03/04 [facility] to upset stomach Not Available Not Available Not Available clobetaso l 0.05 % topical cream APPLY TO RASH TWICE A DAY UP TO 4 WEEKS, THEN TAKE A 2-WEEK BREAK (NO FACE) 07/05 completed Not Available Not Available Not Available acetamino phen 300 mg-codein e 30 mg tablet TAKE 1 TABLET BY MOUTH TWICE A DAY NEEDED FOR 30 DAYS. 04/11 completed Not Available Not Available Not Available amlodipin e 5 mg tablet TAKE 1 TABLET BY MOUTH EVERY DAY active Not Available Not Available No t Available ciproflox acin 500 mg tablet TAKE 1 TABLET BY MOUTH EVERY 12 HOURS FOR 7 DAYS 10/04 completed Not Available Not Available Not Available tramadol 50 mg tablet TAKE 1 TABLET BY MOUTH EVERY 6 HOURS NEEDED 10/10 completed Not Available Not Available Not Available triamcino lone acetonide 0.1 % topical cream APPLY A THIN LAYER TO THE RASH TOPICALL Y TWICE DAILY 07/05 completed Not Available Not Available Not Available butalbita l-acetami nophen-ca ffeine 50 mg-325 mg-40 mg tablet Take 1 tablet every day by oral route as needed for 30 days. 04/11 completed Not Available Not Available Not Available meloxicam 7.5 mg tablet Take 1 tablet every day by oral route as needed for 7 days, for Pain. 2024 active Not Available Not Available Not Avai lable OneTouch Ultra Test strips USE ONE STRIP IN METER ONCE DAILY 04/11 completed Not Available Not Available Not Available Robaxin 500 mg tablet Take 2 tablets 3 times a day by oral route as directed for 30 days. 05/29 completed Not Available Not Available Not Available amlodipin e 10 mg tablet TAKE 1 TABLET BY MOUTH DAILY 03/16 completed Not Available Not Available Not Available benzonata te 100 mg capsule TAKE 1 CAPSULE 3 TIMES A DAY BY MOUTH NEEDED FOR 10 DAYS. 04/11 completed Not Available Not Available Not Available cephalexi n 500 mg capsule one po tid 04/11 completed Not Available Not Available Not Available Banophen 25 mg capsule TAKE 1 CAPSULE BY MOUTH EVERY 6 HOURS NEEDED 04/11 completed Not Available Not Available Not Available hydrochlo rothiazid e 25 mg tablet TAKE 1 TABLET BY MOUTH EVERY DAY active Not Available Not Available No t Available mupirocin 2 % topical ointment APPLY A SMALL AMOUNT TO AFFECTED AREA 3 TIMES A DAY 07/05 completed Not Available Not Available Not Available furosemid e 20 mg tablet TAKE 1 TABLET BY MOUTH EVERY DAY NEEDED 07/05 completed Not Available Not Available Not Available gabapenti n 100 mg capsule TAKE 1 CAPSULE BY MOUTH THREE TIMES A DAY DIRECTED FOR 30 DAYS 03/25 completed Not Available Not Available Not Available clobetaso l 0.05 % topical ointment PLEASE SEE ATTACHED FOR DETAILED DIRECTIO NS 07/05 completed Not Available Not Available Not Available levofloxa jake 500 mg tablet TAKE 1 TABLET BY MOUTH EVERY DAY 10/10 completed Not Available Not Available Not Available levofloxa jake 750 mg tablet 05/29 completed Not Available Not Available Not Available methylpre dnisolone 4 mg tablets in a dose pack TAKE 6 TABLETS ON DAY 1 DIRECTED ON PACKAGE AND DECREASE BY 1 TAB EACH DAY FOR A TOTAL OF 6 DAYS 03/16 completed Not Available Not Available Not Available albuterol sulfate HFA 90 mcg/actua tion aerosol inhaler INHALE 1 PUFF BY MOUTH EVERY 4 HOURS NEEDED FOR SHORTNES S OF BREATH active Not Available Not Available No t Available ketorolac 60 mg/2 mL intramusc ular solution Inject 2 mL every day by intramus cular route as directed for 1 day. 11/02 completed Not Available Not Available Not Available ketoconaz ole 2 % topical cream APPLY TO LEG WOUND TOPICALL Y ONCE DAILY 07/05 completed Not Available Not Available Not Available hydroxyzi ne HCl 10 mg tablet TAKE 1 TABLET BY MOUTH TWICE A DAY active Not Available Not Available No t Available cefdinir 300 mg capsule TAKE 1 CAPSULE BY MOUTH TWICE A DAY 03/16 completed Not Available Not Available Not Available loratadin e 10 mg tablet TAKE 1 TABLET BY MOUTH EVERY DAY 2023 active Not Available Not Available Not Avai lable Microlet Lancet 04/11 completed Not Available Not Available Not Available amoxicill in 500 mg-potass ium clavulana te 125 mg tablet Take 1 tablet every 12 hours by oral route after meals for 7 days. 04/23 completed Not Available Not Available Not Available cyclobenz aprine 5 mg tablet TAKE 1 TABLET BY MOUTH EVERY 8 HOURS. 04/11 completed Not Available Not Available Not Available lancing device 04/11 completed Not Available Not Available Not Available Alcohol Prep Pads USE TO TEST BLOOD SUGAR ONCE DAILY 04/11 completed Not Available Not Available Not Available Spiriva with [employer] r 18 mcg and inhalatio n capsules 05/29 completed Not Available Not Available Not Available pregabali n 150 mg capsule TAKE 1 CAPSULE BY MOUTH TWICE A DAY 12/01 completed Not Available Not Available Not Available calcium 600 mg (as carbonate )-vitamin D3 10 mcg (400 unit) tablet Take 2 tablets every day by oral route. 2024 active Not Available Not Available Not Avai lable Symbicort 160 mcg-4.5 mcg/actua tion HFA aerosol inhaler Inhale 2 puffs twice a day by inhalati on route as directed for 30 days. 11/30 completed Not Available Not Available Not Available Microlet 2 Lancing Device kit Use to test blood sugar levels once daily as directed . active Not Available Not Available No t Available Sterile Saline 0.9 % irrigatio n solution USE DIRRECTE D 2022 active Not Available Not Available Not Avai lable Tradjenta 5 mg tablet One PO daily 2024 active Not Available Not Available Not Avai lable Tudorza Pressair 400 mcg/actua tion breath activated 05/29 completed Not Available Not Available Not Available Breo Ellipta 200 mcg-25 mcg/dose powder for inhalatio n Inhale one puff by mouth once daily 2024 active Not Available Not Available Not Avai lable OneTouch Ultra Blue Test Strip USE ONE STRIP IN METER ONCE DAILY 04/11 completed Not Available Not Available Not Available OneTouch Delica Plus Lancet 33 gauge 04/11 completed Not Available Not Available Not Available Dupixent 200 mg/1.14 mL subcutane ous pen injector Inject 200 mg every 2 weeks by subcutan eous route as directed . active Not Available Not Available No t Available Vitals Date Recorded Body height Body mass index (BMI) Body weight Heart rate Oxygen saturation Systolic And Diastolic Provider Name and Address Organization Details Last Updated DateTime 5 163.83 cm 29.1 kg/m2 09115.3 2 g 75 /min 94 % 138/82 mm[Hg] Gabbie Diaz MA [facility] 5 12:15:15 Date Recorded Body height Body mass index (BMI) Body weight Oxygen saturation Inhaled oxygen flow rate Heart rate Systolic And Diastolic Provider Name and Address Organization Details Last Updated DateTime 5 163.83 cm 29.3 kg/m2 30734.9 1 g 94 % 1 L/min 80 /min 103/67 mm[Hg] Gabbie Diaz MA [facility] 5 11:24:32 Date Recorded Body height Body mass index (BMI) Body weight Heart rate Oxygen saturation Respiratory rate Body temperature Systolic And Diastolic Provider Name and Address Organization Details Last Updated DateTime 5 163.83 cm 29.2 kg/m2 82753.1 2 g 80 /min 95 % 16 /min 98.5 [degF] 104/56 mm[Hg] Jennifer Arizmendi MA [facility] 5 14:22:38 Date Recorded Body height Heart rate Respiratory rate Body temperature Oxygen saturation Systolic And Diastolic Provider Name and Address Organization Details Last Updated DateTime 5 163.83 cm 78 /min 18 /min 98 [degF] 93 % 116/70 mm[Hg] Jenniefr Arizmendi MA [facility] 5 11:44:44 Date Recorded Body height Body mass index (BMI) Body weight Heart rate Oxygen saturation Respiratory rate Body temperature Systolic And Diastolic Provider Name and Address Organization Details Last Updated DateTime 5 163.83 cm 27.1 kg/m2 85390.9 3 g 76 /min 94 % 18 /min 98.4 [degF] 110/60 mm[Hg] Jennifer Arizmendi [place] [facility] 11:55:34 Social History Question Answer Notes LastModified by Organizat ion Details LastModified Time Tobacco Smoking Status Former Smoker Stopped 2011 0.5-1 PPD Ruth Miranda MD Attn: Accounting,[address] [place], [address], [facility] 07/05/2025 14:31:48 Are You Blind Or Do You Have Difficulty Seeing? No Information not available 11/10/2023 What Is Your Level Of Caffeine Consumption? Occasional Information not available 11/10/2023 Are You Deaf Or Do You Have Serious Difficulty Hearing? No Information not available 11/10/2023 What Type Of Diet Are You Following? REGULAR Information not available 11/10/2023 What Is The Highest Grade Or Level Of School You Have Completed Or The Highest Degree You Have Received? [id number] Information not available 11/10/2023 Are There Any Guns Present In Your Home? No Information not available 04/23/2021 What Was The Date Of Your Most Recent Tobacco Screening? 11/02/2025 Information not available 11/02/2025 What Is Your Current Pack Years? [email or web address] Information not available 07/05/2025 What Is Your Relationship Status? Single Information not available 04/23/2021 Do You Use Your Seat Belt Or Car Seat Routinely? Yes Information not available 04/23/2021 Do You Have Smoke And Carbon Monoxide Detectors In Your Home? Yes Information not available 04/23/2021 At What Age Did You Start Smoking Tobacco? 19 Information not available 12/01/2024 How Much Tobacco Do You Smoke? 1 PPD Information not available 12/01/2024 Do You Use Sunscreen Routinely? No Information not available 04/23/2021 Has Tobacco Cessation Counseling Been Provided? No Information not available 04/11/2024 On What Date Was Tobacco Cessation Counseling Provided? 10/05/2025 Information not available 10/05/2025 How Many Years Have You Smoked Tobacco? 44 Information not available 12/01/2024 Sex: Female Functional Status Question Answer Note LastModified by Organizat ion Details LastModified Time Do you use any illicit or recreational drugs? No Information not available 11/10/2023 Do you or have you ever used any other forms of tobacco or nicotine? No Information not available 04/11/2024 What is your level of alcohol consumption? None [email or web address] Information not available 01/30/2015 Do you or have you ever used smokeless tobacco? Never used smokeless tobacco [email or web address] Information not available 11/02/2019 Are you currently employed? No Information not available 11/10/2023 Are you able to care for yourself independently? Yes Information not available 11/10/2023 Do you or have you ever used e-cigarettes or vape? Never used electronic cigarettes Information not available 07/05/2025 What is your exercise level? None Information not available 11/10/2023 Mental Status Question Answer Note LastModified by Organization D etails LastModified Time Do you feel stressed (tense, restless, nervous, or anxious, or unable to sleep at night)? [id number] Information not available 04/23/2021 Family History Relationship Description Onset Age of this Age Resolved Age Notes LastModified by Organization Details LastModified Time Brother Harmful pattern of use of alcohol [email or web address] Not available 01/30 16:49:54 Notes:Brother -- Lumbar Canc er Medical History Condition Response High Blood Pressure Y COPD Y Have you had a mammogram in the last yea r? Y Diabetes Y High Cholesterol Y Gynecological HistoryNo gynecological history recorded. Obstetrics History GPAL:G 0 P 0 0 0 0 Immunizations Vaccine Type Date Status Note Provider Shen candelaria and Address Organization Details Recorded Time COVID-19, mRNA, LNP-S, PF, 100 mcg/0.5mL dose or 50 mcg/0.25mL dose completed Not Available [facility] 11/29/2023 21:18:42 COVID-19, mRNA, LNP-S, PF, 100 mcg/0.5mL dose or 50 mcg/0.25mL dose 1 completed Not Available [facility] 11/29/2023 21:18:42 COVID-19, mRNA, LNP-S, PF, 100 mcg/0.5mL dose or 50 mcg/0.25mL dose 1 completed Not Available [facility] 11/29/2023 21:18:42 Influenza, split virus, quadrivalent, preservative 6 completed Not Available [facility] 12/10/2019 02:50:31 influenza, unspecified formulation 3 completed Ruth Miranda MD Attn: Accounting,[address] [place], [address], [place] [facility] 07/05/2025 14:19:23 Influenza, split virus, quadrivalent, preservative 8 completed Not Available [facility] 12/10/2019 02:34:52 Influenza, split virus, quadrivalent, preservative 8 completed Not Available [facility] 12/10/2019 02:40:19 Influenza, split virus, quadrivalent, preservative 0 completed Anriudh Real MD Attn: Accounting,[address] [place], [address], [place] [facility] 02/01/2020 10:54:28 Influenza, split virus, quadrivalent, preservative 0 completed Cam Alvarez [place], [place] [facility] 02/03/2020 10:45:11 Influenza, split virus, quadrivalent, preservative 0 completed Cam Al[place], [place] [facility] 09/20/2020 10:22:49 Influenza, split virus, quadrivalent, preservative 1 completed Anirudh Real MD Attn: Accounting,[address] [place], [address], [place] [facility] 11/07/2021 12:36:05 Pneumococcal conjugate PCV 13 2 completed Ninfa Santana [place], [place] [facility] 04/08/2022 13:04:12 Tdap 2 completed Anirudh Real MD Attn: Accounting,[address] , [place], [address], [place] [facility] 05/08/2022 10:48:43 pneumococcal polysaccharide PPV23 2 completed Cam Alvarez [place], [place] [facility] 06/10/2022 10:30:19 Influenza, high-dose, trivalent, PF 5 completed Jennifer Arizmendi [place], [place] [facility] 11/02/2025 12:42:43 Past Encounters Encounter ID Performer Location Encounter Start Date Encounter Closed Date Diagnosis/Indication Diagnosis SNOMED-CT Code Diagnosis ICD10 Code Diagnosis IMO Codes Diagnosis Note [id number] Anirudh Real MD [facility] (Adult Med) 66 [place] [address] [phone] 0 01/30/2015 15:19:46 01/31/2015 09:38:10 Osteoarthritis of hip 780188384 Chronic ob structive pulmonary disease 37889819 Ex-smoker [id number] Essential hypertension 73297956 [id number] Anirudh Real MD [facility] (Adult Med) [address] [place] [address] [id number] 0 05/04/2015 09:47:49 05/04/2015 10:39:45 Chronic obstructive pulmonary disease 17424723 Essential hypertension 09503545 Ex-smoker [id number] Osteoarthritis of hip 934246203 Screening for malignant neoplasm of colon 365246287 Postmenopausal state 92086691 [id number] Anirudh eRal MD [facility] (Adult Med) [address] [place] [address] 88831-311 0 01/09/2016 10:13:34 01/09/2016 17:09:36 Essential hypertension 57479911 I10 Ex-smoker 8602722 Z87.89 1 Osteoarthritis of hip 23 2114606 M16.9 Chronic ob structive pulmonary disease 67112335 J44.9 Screening mammography 24 786741 Z12.31 Osteoarthr itis of knee 831577118 M17.9 [id number] Anirudh Real MD [facility] (Adult Med) [address] [place] [address] [id number] 0 01/23/2016 10:35:17 01/23/2016 17:27:04 Osteoarthritis of knee 369150286 M17.9 Chronic ob structive pulmonary disease 84755900 J44.9 Essential hypertension 22601014 I10 [id number] Anirudh Real MD [facility] (Adult Med) [address] [place] [address] [id number] 0 08/20/2016 12:15:01 08/20/2016 13:39:13 Essential hypertension 46884896 I10 Chronic ob structive pulmonary disease 75888012 J44.9 Ex-smoker 7382254 Z87.89 1 Postmenopausal state 764 62709 Z78.0 Administra tion of influenza vaccine 58017207 Z23 [id number] Anirudh Real MD [facility] (Adult Med) [address] [place] [address] [phone] 0 11/28/2016 15:23:53 11/28/2016 17:10:53 Acute bronchitis 38294616 J20.9 Chronic ob structive pulmonary disease 78042532 J44.9 Essential hypertension 46255578 I10 [id number] Anirudh Real MD [facility] (Adult Med) [address] [place] [address] [id number] 0 02/27/2017 10:13:37 02/27/2017 16:03:27 Chronic obstructive pulmonary disease 09264023 J44.9 Osteoarthritis of hip 23 4494632 M16.9 Osteoarthr itis of knee 419197130 M17.9 Essential hypertension 28633846 I10 Screening mammography 24 710134 Z12.31 [id number] Anirudh Real MD [facility] (Adult Med) [address] [place] [address] [phone] 0 05/29/2017 10:29:53 05/29/2017 11:29:22 Chronic obstructive pulmonary disease 19701132 J44.9 Osteoarthritis of hip 23 9476203 M16.9 Calcium/vi tamin D OTC. Osteoarthr itis of knee 023723071 M17.9 Calcium/vi tamin D one twice /day OTC. Essential hypertension 55315736 I10 Low salt diet. Screening mammography 24 080024 Z12.31 Screening for malignant neoplasm of colon 357531711 Z12.11 [id number] Anirudh Real MD [facility] (Adult Med) [address] [place] [address] [id number] 0 11/30/2017 10:32:48 11/30/2017 13:30:24 Type 2 diabetes mellitus 20516633 E11.65 Diabetic diet, exercise and lose weight, repeat the cmp, HgA1c in 3 months, Chronic ob structive pulmonary disease 99661202 J44.9 Ex-smoker 3505970 Z87.89 1 Administra tion of influenza vaccine 87447312 Z23 Essential hypertension 00800694 I10 Low salt diet. [id number] Anirudh Real MD [facility] (Adult Med) [address] [place] [address] [phone] 0 02/26/2018 09:59:21 02/26/2018 10:44:25 Chronic obstructive pulmonary disease 15730951 J44.9 Osteoarthritis of hip 23 5707131 M16.9 Calcium/vi tamin D OTC. Essential hypertension 24067556 I10 Low salt diet. Type 2 alfie betes mellitus 42257633 E11.65 Diabetic diet, exercise and lose weight, repeat the cmp, HgA1c in 3 months, Blood sugar is 115 mg% today 02-26-2018 . Last hga1c was 7%. [id number] Anirudh Real MD [facility] (Adult Med) [address] [place] [address] [id number] 0 07/01/2018 17:19:29 07/01/2018 18:01:19 Screening mammography 15873232 Z12.31 Essential hypertension 34677337 I10 Low salt diet. BP is well controlled . Chronic ob structive pulmonary disease 91040035 J44.9 Stable. Type 2 alfie betes mellitus without complication 918000160 E11.9 Diabetic diet, exercise and keep the weight down. HgA1C is 6.4% 07-01-2018 , patient is informed. Blood sugar is 98 mg%. [id number] Anirudh Real MD [facility] (Adult Med) [address] [place] [address] [id number] 0 10/20/2018 10:08:33 10/20/2018 13:00:01 Type 2 diabetes mellitus without complication 739123291 E11.9 Diabetic diet, exercise and keep the weight down. HgA1C is 6.4% 07-01-2018 , patient is informed. Blood sugar is 98 mg%. 96 MG% 10-19-2018 , has enough medication s refilled. Screening mammography 24 796491 Z12.31 Administra tion of influenza vaccine 67434635 Z23 [id number] Anirudh Real MD [facility] (Adult Med) [address] [place] [address] [id number] 0 05/03/2019 09:55:40 05/03/2019 10:38:41 Diabetes mellitus 82219453 E11.9 Dietic , exercise and keep the weight down. Chronic ob structive pulmonary disease 70763569 J44.9 Stable. Osteoarthritis of hip 23 6967270 M16.9 Calcium/vi tamin D OTC. Osteoarthr itis of knee 360578439 M17.9 Calcium/vi tamin D one twice /day OTC. [id number] Anirudh Real MD [facility] (Adult Med) [address] [place] [address] [phone] 0 08/03/2019 10:02:58 08/04/2019 10:58:26 Swollen ankle region 856784385 R22.42 Discussed with patient, she agreed with referral of podiatry. [id number] Anirudh Real MD [facility] (Adult Med) [address] [place] [address] [phone] 0 11/02/2019 10:06:21 11/02/2019 11:20:49 Acute bronchitis 05734159 J20.9 [id number] Anirudh Real MD [facility] (Adult Med) [address] [place] [address] [phone] 0 02/01/2020 09:44:10 02/02/2020 12:38:58 Type 2 diabetes mellitus without complication 302059856 E11.9 Diabetic diet, exercise and keep the weight down. HgA1C is 6.4% 07-01-2018 , patient is informed. Blood sugar is 98 mg%. 96 MG% 10-19-2018 , has enough medication s refilled. 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 Essential hypertension 13520304 I10 Low salt diet. BP is well controlled . Chronic ob structive pulmonary disease 48397962 J44.9 Stable. Administra tion of influenza vaccine 73668651 Z23 She tolerated shot well. Headache 43775292 R51 Disc [id number] Anirudh Real MD [facility] (Adult Med) [address] [place] [address] [id number] 0 06/01/2020 09:45:12 06/06/2020 13:45:05 Acute exacerbation of chronic obstructive pulmonary disease 517398442 J44.1 Discussed with patient, she wantes some antibiotic s. Chronic ob structive pulmonary disease 89071662 J44.9 Stable. Type 2 alfie betes mellitus without complication 255726130 E11.9 Diabetic diet, exercise and keep the weight down. HgA1C is 6.4% 07-01-2018 , patient is informed. Blood sugar is 98 mg%. 96 MG% 10-19-2018 , has enough medication s refilled. Essential hypertension 88218737 I10 Low salt diet. BP is well controlled . [id number] Anirudh Real MD [facility] (Adult Med) [address] [place] [address] [id number] 0 09/20/2020 09:55:37 09/21/2020 10:11:10 Administration of influenza vaccine 87122060 Z23 She tolerated shot well. [id number] Anirudh Real MD [facility] (Adult Med) [address] [place] [address] [id number] 0 02/05/2021 08:56:36 02/06/2021 12:09:30 Chronic obstructive pulmonary disease 52288562 J44.9 Stable. On albuterol inhaler, also breo ellipta inhaler. Essential hypertension 95479092 I10 Low salt diet. BP is well controlled ., on amlodipine 10 mg/day and lisinopril 20 mg/day. Type 2 alfie betes mellitus 70655931 E11.65 Diabetic diet, exercise and lose weight, repeat the cmp, HgA1c in 3 months, Blood sugar is 115 mg% today 02-26-2018 . Last hga1c was 7%., HgA1c is 6.7% from [facility] today, patient informed from this office today, on metformin , blood sugar was 126 mg% yyesterday , 10-04-2020 . On metformin8 50 mg bid, Generalize d osteoarthritis 175673935 M15.9 Dyslipidem ia due to type 2 diabetes mellitus 2470600740 02 E78.5 Low animal fat and low saturated fat diet. On atorvastat in 10 mg/day. Migraine 93044183 G43.90 9 On butabital- acetaminop hen- caffeine as needed basis. [id number] Anirudh Real MD [facility] (Adult Med) [address] [place] [address] [phone] 0 04/23/2021 10:05:16 04/24/2021 14:40:50 Type 2 diabetes mellitus 51831998 E11.65 Diabetic diet, exercise and lose weight, repeat the cmp, HgA1c in 3 months, Blood sugar is 115 mg% today 02-26-2018 . Last hga1c was 7%., HgA1c is 6.7% from [facility] today, patient informed from this office today, on metformin , blood sugar was 126 mg% yyesterday , 10-04-2020 . On metformin8 50 mg bid, Essential hypertension 00093407 I10 Low salt diet. BP is well controlled ., on amlodipine 10 mg/day and lisinopril 20 mg/day. Migraine 65745264 G43.90 9 On butabital- acetaminop hen- caffeine as needed basis. [id number] Anirudh Real MD [facility] (Adult Med) [address] [place] [address] [phone] 0 08/20/2021 09:45:15 08/21/2021 16:51:03 Acute respiratory infections 245762209 J22 [id number] Anirudh Real MD [facility] (Adult Med) [address] [place] [address] [id number] 0 11/07/2021 11:28:56 11/08/2021 10:36:22 Type 2 diabetes mellitus 10546860 E11.65 Diabetic diet, exercise and lose weight, repeat the cmp, HgA1c in 3 months, Blood sugar is 115 mg% today 02-26-2018 . Last hga1c was 7%., HgA1c is 6.7% from [facility] today, patient informed from this office today, on metformin , blood sugar was 126 mg% yesterday, 10-04-2020 . On metformin8 50 mg bid, Administra tion of influenza vaccine 14134357 Z23 She tolerated shot well. Pain in left foot 538772 4466 54727 M79.672 Will x ray and manager financial reporting referral , she agreed. Walks with limping. [id number] MD [facility] (Adult Med) [address] [place] [address] [phone] 0 04/08/2022 10:18:57 04/09/2022 07:14:29 Type 2 diabetes mellitus 65611137 E11.65 Diabetic diet, exercise and lose weight, repeat the cmp, HgA1c in 3 months, Blood sugar is 115 mg% today 02-26-2018 . Last hga1c was 7%., HgA1c is 6.7% from [facility] today, patient informed from this office today, on metformin , blood sugar was 126 mg% yesterday, 10-04-2020 . On metformin8 50 mg bid, Metformin made her having diarrhea, will change to tradjenta. She will make appointmen t with ophthalmol ogist in the near future. Comprehens oswaldo diabetic feet examined today 04-08-2022 . No deformity, good pulses of feet ,intact to the microfilam ent touch. On ulceration , no gangrene,. Dyslipidem ia due to type 2 diabetes mellitus 7992709596 02 E78.5 Low animal fat and low saturated fat diet. On atorvastat in 10 mg/day. Screening mammography 24 056088 Z12.31 Ordered as requested. Screening for malignant neoplasm of colon 951611279 Z12.11 She agreed. Administra tion of pneumococcal vaccine 46428183 Z23 She agreed, She tolerated shot well. [id number] MD [facility] (Adult Med) [address] [place] [address] [phone] 0 04/22/2022 10:17:15 04/22/2022 11:37:35 Administration of diphtheria, pertussis, and tetanus vaccine 291240194 Z23 [id number] Anirudh Real MD [facility] (Adult Med) [address] [place] [address] [phone] 0 06/10/2022 10:05:26 06/11/2022 12:00:35 Administration of pneumococcal vaccine 57384499 Z23 She agreed, She tolerated shot well. [id number] Anirudh Real MD [facility] (Adult Med) [address] [place] [address] [phone] 0 12/10/2022 14:33:27 12/16/2022 11:41:29 Overweight 655486061 E66.3 BMI is 29.3, she has been advised to watch her diabetic diet, exerecise and keep the weight down. Type 2 alfie heena mellitus 94188691 E11.65 Diabetic diet, exercise and lose weight, repeat the cmp, HgA1c in 3 months, Blood sugar is 115 mg% today 02-26-2018 . Last hga1c was 7%., HgA1c is 6.7% from [facility] today, patient informed from this office today, on metformin , blood sugar was 126 mg% yesterday, 10-04-2020 . On metformin8 50 mg bid, Metformin made her having diarrhea, will change to tradjenta. She will make appointmen t with ophthalmol ogist in the near future. Comprehens oswaldo diabetic feet examined today 04-08-2022 . No deformity, good pulses of feet ,intact to the microfilam ent touch. On ulceration , no gangrene,. Pruritic disorder 249963 002 L29.9 Itching skin lesion on arms. feet abdomen and lower back with dark discolorat ion, huge areas. will try short term steroid and dermatolog y referral. No family member involved. went to er , steroid has short term relief, but lesion and itching remains. Chronic ob structive pulmonary disease 44353902 J44.9 Stable. On albuterol inhaler, also breo ellipta inhaler. Dyslipidem ia due to type 2 diabetes mellitus 2912933962 02 E78.5 Low animal fat and low saturated fat diet. On atorvastat in 10 mg/day. Essential hypertension 95028502 I10 patient needs a BP monitor to use at home. Has appt 12/10/2022 , will try to order now, but pt is aware insurance may not cover until there are notes from her upcoming appt. 12-10-2022 . BP is 130/72. [id number] Anirudh Real MD [facility] (Adult Med) [address] [place] [address] 03/10/2023 09:57:52 03/10/2023 10:31:29 Chronic obstructive pulmonary disease 02706725 J44.9 Stable. On albuterol inhaler, also breo ellipta inhaler. Essential hypertension 41518537 I10 patient needs a BP monitor to use at home. Has appt 12/10/2022 , will try to order now, but pt is aware insurance may not cover until there are notes from her upcoming appt. 12-10-2022 . BP is 130/72. As 03-10-23, BP is 122/72 today. has enough med refills. Generalize d osteoarthritis 949576855 M15.9 Hips and knee. is able to ambulating without assistance . 03-10-23. Type 2 alfie betaquiles mellitus 40350279 E11.65 Diabetic diet, exercise and lose weight, repeat the cmp, HgA1c in 3 months, Blood sugar is 115 mg% today 02-26-2018 . Last hga1c was 7%., HgA1c is 6.7% from [facility] today, patient informed from this office today, on metformin , blood sugar was 126 mg% yesterday, 10-04-2020 . On metformin8 50 mg bid, Metformin made her having diarrhea, will change to tradjenta. She will make appointmen t with ophthalmol ogist in the near future. Comprehens oswaldo diabetic feet examined today 04-08-2022 . No deformity, good pulses of feet ,intact to the microfilam ent touch. On ulceration , no gangrene,. [id number] Anirudh Real MD [facility] (Adult Med) [address] [place] [address] 07/21/2023 12:17:57 07/25/2023 11:56:05 Swelling of lower leg 570493290 R22.42 Bruised patches , flat on the left lower leg , lateral side, Pitting edema. , right legs no swelling or discolorat ion, .Will order Stat venous study, to R/O acute DVT now, she agreed. if positive will treat with anticoagul ant, , if is negative, then oleg treat as cellulitis . Type 2 alfie betaquiles mellitus 99852431 E11.65 Diabetic diet, exercise and lose weight, repeat the cmp, HgA1c in 3 months, Blood sugar is 115 mg% today 02-26-2018 . Last hga1c was 7%., HgA1c is 6.7% from [facility] today, patient informed from this office today, on metformin , blood sugar was 126 mg% yesterday, 10-04-2020 . On metformin8 50 mg bid, Metformin made her having diarrhea, will change to tradjenta. She will make appointmen t with ophthalmol ogist in the near future. Comprehens oswaldo diabetic feet examined today 04-08-2022 . No deformity, good pulses of feet ,intact to the microfilam ent touch. On ulceration , no gangrene,. [id number] MD [facility] (Adult Med) [address] [place] [address] [phone] 0 09/28/2023 09:33:37 10/25/2023 13:34:00 Ankle pain 069540882 M25.579 Will do x-ray to rule out bony abnormalit y. Eruption 761106529 R21 Ulcer of l ower extremity 89361024 L97.909 Painful wound on left lower leg just above ankle which is dark and necrotic in appearance unresponsi ve to antibiotic s in a patient with diabetes and hypertensi on. This is most consistent with a wound due to peripheral arterial disease. Will order arterial doppler studies. She has not been febrile, her sugars have been controlled , she is not responding to antibiotic s, and the appearance is not consistent with cellulitis . Will discontinu e antibiotic at this time. Will still get CBC and Sed rate along with x-ray to help rule out osteomyeli tis. Although this is not as likely it is still in the differenti al. Will also check venous doppler to evaluate venous flow. There is also the possibilit y this is due to venous insufficie ncy. Follow up Thursday to review test results. Seek immediate medical attention if there are any changes. Essential hypertension 07748357 I10 Blood pressure controlled . Type 2 alfie betes mellitus 43100709 E11.9 Glucose has been well controlled according to patient history. [id number] MD [facility] (Adult Med) [address] [place] [address] 10/01/2023 09:30:55 10/05/2023 16:36:29 Wound of skin 052746260 T14.8XXD Sed rate and WBC normal. Lesion consistent with vascular wound. Will get doppler studies for further evaluation . Was able to reschedule arterial and venous doppler studies for this afternoon. Will have patient do wet to dry dressings. Patient will follow up in one week. Seek immediate medical attention if worse or if there is a change. [id number] MD [facility] (Adult Med) [address] [place] [address] [phone] 0 10/06/2023 10:22:02 10/08/2023 15:11:48 Wound of skin 598850704 T14.8XXD Wound appears necrotic. Arterial dopplers study is normal. May need to be debrided. Proceed with General Surgery referral. Saline dressings have helped patient's comfort but not much change in wound's appearance . Will have patient continue saline dressings but she can do them twice a day. Follow up in two weeks. [id number] MD [facility] (Adult Med) [address] [place] [address] [phone] 0 10/20/2023 14:01:23 10/21/2023 14:48:01 Lichen planus 4743647 L43.9 Will have patient cancel surgery appointmen t. Treat with oral Prednisone due to degree of discomfort and widespread area on leg. Will also have her use steroid cream to areas that are uncomforta ble BID prn. Claritin q d for pruritis. Check LANIE and Sed rate for auto immune disease such as Lupus. Follow up next week. At follow up will review possible drug exposures that could have triggered this and find out if this was discussed by Dermatolog ist. There is no medication that was clearly started right before the rash when I review her records. [id number] MD [facility] (Adult Med) [address] [place] [address] [phone] 0 10/28/2023 10:23:46 11/02/2023 14:09:03 Lichen planus 6186282 L43.9 Dramatic improvemen t in symptoms after treatment with oral steroids. Patient will use antibiotic ointment she has at home on open areas. Advised her to cover loosely with dressing. Continue pain medication as needed. Follow up with Dr. Back. Seek immediate medical attention if symptoms become worse again. Reviewed past history of this rash and medication list and there was no obvious new medication that coincided with onset of this rash. [id number] MD [facility] (Adult Med) [address] [place] [address] [phone] 0 11/10/2023 10:55:42 11/10/2023 11:25:49 Type 2 diabetes mellitus 90335360 E11.9 Diabetic diet, exercise and lose weight, repeat the cmp, HgA1c in 3 months, Blood sugar is 115 mg% today 02-26-2018 . Last hga1c was 7%., HgA1c is 6.7% from [facility] today, patient informed from this office today, on metformin , blood sugar was 126 mg% yesterday, 10-04-2020 . On metformin8 50 mg bid, Metformin made her having diarrhea, will change to tradjenta. She will make appointmen t with ophthalmol ogist in the near future. Comprehens oswaldo diabetic feet examined today 04-08-2022 . No deformity, good pulses of feet ,intact to the microfilam ent touch. On ulceration , no gangrene,. Chronic ob structive pulmonary disease 48508545 J44.9 Stable. On albuterol inhaler, also breo ellipta inhaler. Osteoarthritis of hip 23 1210408 M16.9 Calcium/vi tamin D OTC. Osteoarthr itis of knee 355883997 M17.9 Calcium/vi tamin D one twice /day OTC. [id number] MD [facility] (Adult Med) [address] [place] [address] [phone] 0 11/05/2023 11:50:16 11/09/2023 14:02:15 Cellulitis 115064499 L03.90 Secondary infection. Will treat with Keflex TID for ten days. Follow up with Dr. Back. Lichen planus 7109000 L4 3.9 Has completed a course of oral steroids. Continues to improve but has not resolved. Advised her to use Vaseline or A and D ointment over the area. If is not continuing to resolve would recommend she follow up with the Dermatolog ist who made the original diagnoses of lichen planus. She is following up with Dr. Back next week. [id number] MD [facility] (Adult Med) [address] [place] [address] [id number] 0 12/16/2023 15:24:35 12/17/2023 15:44:23 Diabetic peripheral neuropathy 839135400 E11.40 Some numbness of fingers, she is sugar diabetic, possible neuropathy , agreed to try gabapentin . COVID-19 726536918 U07.1 Had covid infection about 3 weeks ago, recovered, still has some residual dry cough, but no wheezing or shortness of breath. , May try OTC cough liquid. she agreed. [id number] Anirudh Real MD [facility] (Adult Med) [address] [place] [address] 01/13/2024 11:29:38 01/18/2024 17:56:00 Type 2 diabetes mellitus 22824667 E11.9 Diabetic diet, exercise and lose weight, repeat the cmp, HgA1c in 3 months, Blood sugar is 115 mg% today 02-26-2018 . Last hga1c was 7%., HgA1c is 6.7% from [facility] today, patient informed from this office today, on metformin , blood sugar was 126 mg% yesterday, 10-04-2020 . On metformin8 50 mg bid, Metformin made her having diarrhea, will change to tradjenta. She will make appointmen t with ophthalmol ogist in the near future. Comprehens oswaldo diabetic feet examined today 04-08-2022 . No deformity, good pulses of feet ,intact to the microfilam ent touch. On ulceration , no gangrene,. Open wound of left lower leg 0980016508 5880410 S81.802A She agreed for the referral. Left leg pain when she changes the dressing. he agreed for the referral to wound care clinic. Gabapentin not working. X ray of left ankle no evidence of osteomyeli tis. . Copies of Arterial doppler od 10-01-23, , Chest x ray, of 09-29-23, XR of left ankle of 09-29-[address] of 11-23-23 , explained to her in details, today 01-13-24. Smoker 72512860 F17.200 Advised to quit smoking for the good health and financial reasons. She is aware of smoking can cause permanet emphysema, cancer of lung, or throat,or mouth, and other disease. [id number] Racheal Centeno MD [facility] (Adult Med) [address] [place] [address] 04/11/2024 09:11:21 2024 14:49:42 Chronic obstructive pulmonary disease 92332815 J44.9 Type 2 alfie betes mellitus 23890935 E11.9 Essential hypertension 21945494 I10 [id number] MD [facility] Kamara (Adult Med) [address] [place] [address] 15224-920 0 08/03/2024 15:08:35 08/04/2024 12:35:31 Obesity 727704253 E66.8 Pruritic d isorder of skin 2072781633 L29.9 Venous ins ufficiency of lower limb 518533277 I87.2 Disorder of skin 6109757 5 L98.9 [id number] MD [facility] Kamara (Adult Med) [address] [place] [address] [phone] 0 10/10/2024 10:16:59 10/18/2024 15:44:57 Chronic obstructive pulmonary disease 00099645 J44.9 f/u pulmonary Essential hypertension 81908641 I10 Pruritic d isorder of skin 0217180526 L29.9 Cont current rx Screening for malignant neoplasm of breast 858708196 Z12.39 Venous ins ufficiency of lower limb 261057232 I87.2 [id number] MD [facility] Kamara (Adult Med) [address] [place] [address] 71800-642 0 12/01/2024 11:22:44 12/02/2024 16:06:42 Pruritic disorder of skin 1279107672 L29.9 Cont current rx Venous ins ufficiency of lower limb 898982435 I87.2 [id number] MD Ma[facility] Kamara (Adult Med) [address] [place] [address] [phone] 0 03/16/2025 10:57:59 03/20/2025 13:46:09 Chronic obstructive pulmonary disease 05147935 J44.9 f/u pulmonary Essential hypertension 67819758 I10 Cont meds Postmenopa usal osteopenia 968267272 M85.80 Z78.0 8156164821 Cont meds [id number] MD [facility] Rajan (Adult Med) [address] [place] [address] [phone] 0 07/05/2025 14:11:28 07/06/2025 10:03:17 Adult health examination 391110736 Z00.01 [id number] Essential hypertension [id number] I10 Stable on Amlodipine 5 mg po daily, HCTZ 25 mg PO daily and Lisinopril 20 mg PO dailyY Type 2 alfie betes mellitus 72385221 E11.9 On Atorvastat in 10 mg PO daily, Tradjenta 5 mg PO daily History of nicotine dependence [id number] 12505223 Z87.[id number] chest 02/25/2025 Prurigo nodularis 884101 00 L28.1 587 She is on Dupixent and follows up with Dr Deonte Merrill at [facility] Osteopenia [id number] M85 .80 [id number] On Ca/Vitamin D Chronic ob structive pulmonary disease 60136863 J44.9 [id number] On Albuterol and Breo [id number] MD Maik Rajan (Adult Med) [address] [place] [address] [phone] 10/05/2025 10:26:40 10/09/2025 12:09:50 Type 2 diabetes mellitus 89231955 E11.9 Labs 07/05/2025 HBA1C 6.5%On Atorvastat in 10 mg PO daily and Tradjenta 5 mg PO daily Overweight in adulthood with body mass index of 25 or more but less than 30 148280877 E66.3 Z68.29 0882244516 Overweight 721834910 E66 .3 Acute ankle pain 1645213 011 9105 M25.571 67735723 The DDX. includes a sprain and Gout Kidney finding 728115413 R39.9 [id number] MD Maik Rajan (Adult Med) [address] [place] [address] [phone] 11/02/2025 11:45:30 11/03/2025 12:02:07 Adult health examination 227972293 Z00.00 Health Risk Assessment collected and reviewed Influenza vaccination given [id number] 9109 Z23 18590575 Type 2 alfie betes mellitus 76923678 E11.9 Labs OV 10/05/2025 Labs 07/05/2025 HBA1C 6.5%On Atorvastat in 10 mg PO daily and Tradjenta 5 mg PO daily Kidney lesion [id number] 9100 N28.9 929224 9 mm L. renal lesion in the mid pole on the CT scan.MRI needed and ordered by her nephrologi ; mass, scar, cyst Chronic ki dney disease stage 3A 678131652 N18.31 [id number] Finding of clavicle structure 931864190 Q74.[address] chest 02/25/2025 Health Concerns Section Related Observation LastModified by Organization Detai ls LastModified Time None Recorded Concern Status LastModified by Organization Details LastModified Time None Recorded Advance Directives Directive None Recorded Payers Insurance Date Sequence Insurance Name Policy Number Policy Jose Covered Member ID Jose Member ID Guarantor Name 11/02/2025 1 [facility] (MEDICARE REPLACEMENT HMO) [id number] Maki Raines [id number] Maki Raines 11/02/2025 1 [employer] (MEDICARE REPLACEMENT/ ADVANTAGE - HMO) [id number] Maki Raines [id number] Maki Raines 11/02/2025 1 [employer] (MEDICARE REPLACEMENT/ ADVANTAGE - HMO) [id number] Maki Raines [id number] Maki Raines 11/02/2025 [place]: [facility] Maki Raines [id number] Maki Raines 11/02/2025 1 [place] Maki Raines [id number] Maki Raines 11/02/2025 1 [facility] (MEDICARE REPLACEMENT/ ADVANTAGE - HMO) [id number] Maki Raines [id number] Maki Raines 11/02/2025 1 [facility] (MEDICAID HMO) [id number] Maki Raines [id number] Maki Raines 11/02/2025 2 [place] [employer] [facility] Maki Raines [id number] Maki Raines 11/02/2025 [place] - [facility] Maki Raines [id number] Maki Raines 11/02/2025 1 [place] Maki Raines [id number] Maki Raines 11/02/2025 1 [facility] (MEDICARE - MEDICAID REPLACEMENT HMO) Maki Raines [id number] Maki Raines 11/02/2025 2 [place] WHEN MEDICARE OR MEDICARE REPLACEMENT PRIMARY) Maki Raines [id number] Maki Raines Notes Date Note Type Note Provider Name and Address Organization Details Recorded Time 12/01/2024 text/html Here for f/u of skin lesions. Concerned that they may be related to her thyroid. She did see a student nurse but received no significant input Racheal Centeno MD Attn: Accounting, [address] [place], [address], [facility] 12/01/2024 13:10:32 03/16/2025 text/html Here for post hospital f/u. Was treated for URI. CT chest without infiltrate or PE. She feels fine now Racheal Centeno MD Attn: Accounting,[address] [facility], [place], [address], [facility] 03/16/2025 11:40:52 07/05/2025 text/html Diabetes F/URepo rted by PatientHPIFor review finger sticks, patient reportsfastin-124. For labs, patient reportslast a1c result: 6.9%. For context, patient reportstaking aspirin daily,not missing doses of medications, andno side effects from medications. For associated symptoms, patient reportsno weight gain,no weight loss,no dizziness,no sweats,no headaches,no confusion,no increased thirst,no increased appetite,no increased urination,no blurred vision,no numbness of feet, andno calluses on feet.ROS as noted in the HPI The history was obtained from the EHR ad the patient The new doctorWhy was the order placed for me to do my blood pressure every morning? 75 y/o BF with a PMHX of HTN, DM, Prurigo nodularis, COPD and Osteopenia who is here to establish care. She was last seen by Dr Centeno on 03/16/2025 Ruth Miranda MD Attn: Accounting,[address] [facility], [place], [address], [place] [facility] 07/05/2025 16:57:33 10/05/2025 text/html Diabetes F/URepo rted by PatientHPIFor labs, patient reportslast a1c result: 6.5%. For context, patient reportsnormal range of home blood sugars (in the low 100s),seeing eye doctor regularly,checking feet regularly,taking aspirin daily,not missing doses of medications, andno side effects from medications. For associated symptoms, patient reportsno weight gain,no weight loss,no dizziness,no sweats,no headaches,no confusion,no increased thirst,no increased appetite,no increased urination,no blurred vision,no numbness of feet, andno calluses on feet. Hypertension F/UReported by PatientHPIFor associated symptoms, patient reportsno dizziness,no lightheadedness,no chest pain,no shortness of breath,no palpitations,no edema, andno calf pain with exertion. For lifestyle, patient reportsregular exerciseandlimiting/av oiding salt. For medications, patient reportstaking medications as directedandno side effects from medication. AnkleReported by PatientHPIFor location, patient reportsbilateral (r>l). For quality, patient reportsaching. For severity, patient reportssevere. For duration, patient reports4 days. For timing, patient reportsacute. For context, patient reportscannot identify. For aggravating factors, patient reportsstanding,walkin g,rom, andweightbearing. For associated symptoms, patient reportsno weakness,no numbness,no tingling,no swelling,no redness,no warmth,no ecchymosis,no catching/locking,no popping/clicking,no buckling,no grinding,no instability,no radiation down leg,no drainage,no fever,no chills,no weight loss, andno change in bowel/bladder habits. For previous surgery, patient reportsnone. For prior imaging, patient reportsnone. For previous injections, patient reportsnone. For previous pt, patient reportsnone. For work related, patient reportsno.ROS as noted in the HPI I popped a boneThis bone in here, I got up and could not walk on itHe said I had a mass on my liver Ms Raines was in the ER with left flank pain, the CT may have suggested a complicated cyst, the emergency room referred her to the gradall operator, Dr Swan who ordered a MRI. She was claustrophobic and the ordering physician may have placed an order for a different test. Unfortunately, I have no official records from her ER visit other than discharge instructions that list a renal cyst and a UTI. She says that she was also told by the ER that she had kidney stones and that Dr Swan mentioned a liver mass.. She has a daughter who is ill and injured her left foot a few months ago, she cannot explain what happened to the right ankle but she woke up with pain and swelling four days ago. Ruth Miranda MD Attn: Accounting,[address] [place], [address], [facility] 10/05/2025 14:11:34 11/02/2025 text/html MAW 2Reported by PatientSocial/Behavior al HistoryFor diet and nutrition, patient reportshealthy diet,discussed vitamin and supplement use, anddiscussed maintaining calcium balance. For fracture risk, patient reportsno history of fracturesandno sudden unexplained fractures.Mental Status:For concentration and memory, patient reportsno decreased concentrating ability,no memory lapses or loss, anddoes not forget words. For speech/motor difficulties, patient reportsno speech difficulties,no difficulty expressing formulated concepts,no difficulty with fine manipulative tasks,no difficulty writing/copying,no slowed reaction time, anddoes not knock things over when trying to pick them up.Functional AbilityFor vision, patient reportsworse near. For home safety, patient reportsdoes not have hand bars in the bathroom/showerbut reportsno unsafe josé miguel hazzards,no unsafe stairs,working smoke/co detectors,no fire arms, andgood lighting in the home. For hearing, patient reportsno loss of hearing. For activities of daily living, patient reportsable to bathe with limited or no assistance,able to contol urination and bowels,able to dress with limited or no assistance,able to feed self with limited or no assistance,able to get out of chair or bed with limited or no assistance,able to groom with limited or no assistance, andable to toilet with limited or no assistance. For instrumental activities of daily living, patient reportsable to do house work with limited or no assistance,able to grocery shop with limited or no assistance,able to manage medications with limited or no assistance,able to manage money with limited or no assistance,able to prepare meals with limited or no assistance, andable to use the phone with limited or no assistance. For falls risk assessment, patient reportsno frequent falls while walking,no fall in the past year,no fall since last visit, andno dizziness/vertigo.ROS as noted in the [facility] Wellness visitDid you get the CT? Ms Raines is doing well, she is here for her MAWV and in the interim, she has rescheduled her MRI to evaluate the renal lesion.She wonders why the distal part of the right clavicle is more prominent. Ruth Miranda MD Attn: Accounting,[address] [facility], [place], [address], [place] [facility] 11/02/2025 13:35:08 OBGyn Episode No OBEpisode recorded.
--- OUTSIDE RECORDS SUMMARY | 2025-11-12 13:34 | XMS_ITS | Clinical Summary ---
Author Organization [facility] Address [address] [place] [address] Phone Care Team Providers Care Business Development Specialist Name Role Phone Anirudh Real MD Primary Care Provider [phone] Allergies Active Allergy Reactions Criticality Noted Date Comments Folic Acid 08/31/2025 Sulfa Antibiotics 08/31/2025 Medications amLODIPine (NORVASC) 5 MG tablet Take 5 mg by mouth 1 (one) time each day Active atorvastatin (LIPITOR) 10 MG tablet Take 10 mg by mouth 1 (one) time each day Active Fluticasone Furoate-Vilante rol (Breo Ellipta) 200-25 MCG/ACT aerosol powder Inhale 1 puff 1 (one) time each day Active hydroCHLOROthia zide (HYDRODIURIL) 25 MG tablet Take 25 mg by mouth 1 (one) time each day Active hydrOXYzine (ATARAX) 10 MG tablet Take 10 mg by mouth in the morning and 10 mg in the evening. Active lisinopril (PRINIVIL) 20 MG tablet Take 20 mg by mouth 1 (one) time each day Active linaGLIPtin (Tradjenta) 5 MG tablet Take by mouth 1 (one) time each day Active Dupilumab (Dupixent) 300 MG/2ML solution auto-injector Inject under the skin every 14 (fourteen) days Active Active Problems Problem Noted Date Diagnosed Date Renal mass 08/31/2025 Acute cystitis with hematuria 08/31/2025 Chronic kidney disease 08/31/2025 Encounters Date Type Department Care Team Description 09/05/2025 2:00 PM CDT Office Visit [facility] [address], [address] [place] [address] Sahq Kern MD Renal mass (Primary Dx); Essential (primary) hypertension; Stage 3a chronic kidney disease 09/05/2025 Orders Only [facility] [address] [facility] [address] [place] [address] Shaq Kern MD Renal mass (Primary Dx) from Last 3 Months Social History Tobacco Use Types Packs/Day Years Used Date Smoking Tobacco: Never Smokeless Tobacco: Never Tobacco Cessation:Counseling Given: Not Answered Comments Unknown Sex and Gender Information Value Date Recorded Sex Assigned at Not on file Legal Sex Female 12:45 PM MDT Gender Identity Not on file Sexual Orientation Not on file Last Filed Vital Signs Vital Sign Reading Time Taken Comments Blood Pressure 119/82 09/05/2025 1:51 PM CDT Pulse 84 09/05/2025 1:51 PM CDT Temperature - - Respiratory Rate - - Oxygen Saturation - - Inhaled Oxygen Concentration - - Weight 74.8 kg (165 lb) 09/05/2025 1:51 PM CDT Height - - Body Mass Index - - Plan of Treatment Upcoming Encounters Date Type Department Care Team (Late st Contact Info) Description 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 Office Visit [facility] [address] [facility] [address] [place] [address] Shaq Kern MD [facility] [address] [place], [place] [id number] Health Maintenance Due Date Last Done Comments Diabetic Foot Exam 1961 Ophthalmology Exam 1961 Pneumococcal PPSV23/PCV13 65 + Years / High and Highest Risk (2 of 4 - PPSV23, PCV20, or PCV21) 06/03/2022 04/08/2022 COVID-19 Vaccine (4 - 2024- season) 2025 11/05/2021, 03/08/2021, 02/08/2021 Influenza Vaccine (#1) 2025 09/11/2013 Insurance [employer] MEDICARE Care Teams Business Development Specialist Relationship Specialty Start Date End Date Anirudh Real MD [address] [place] [address] PCP - General Family Medicine 08/31/25
--- OUTSIDE RECORDS SUMMARY | 2025-11-12 13:34 | XMS_ITS | Clinical Summary ---
Author Organization [facility] Address [address] [place] [address] Care Team Providers Care Chief Of Service Name Role Phone Anirudh Real MD Primary Care Provider [phone] Social History Tobacco Use Types Packs/Day Years Used Date Smoking Tobacco: Never Assessed Comments Unknown Sex and Gender Information Value Date Recorded Sex Assigned at Female 03/13/2025 12:34 PM CDT Legal Sex Female 7:27 PM CDT Gender Identity Not on file Sexual Orientation Not on file Plan of Treatment Health Maintenance Due Date Last Done Comments Colorectal Cancer Screening Colonoscopy (10 Years) 1951 Hepatitis C 1969 DTaP, Tdap and Td Vaccines ( 1 - Tdap) 1970 Mammogram Screening 1991 Pneumococcal Vaccine: 50+ Years (1 of 1 - PCV) 2001 Zoster Vaccines (1 of 2) 2001 COVID-19 Vaccine ( - 2024-2 6 season) 2025 11/05/2021, 03/08/2021, 02/08/2021 Influenza Adult (#1) 2025 RSV Immunization or 60+ Years (1 - 1-dose 75+ series) 2026 Dexa Scan (General) Completed 03/13/2025 Hepatitis A Vaccines Aged Out No long er eligible based on patient's age to complete this topic Meningococcal B Vaccine Aged Out No l onger eligible based on patient's age to complete this topic Meningococcal Vaccine Aged Out No elvin solomon eligible based on patient's age to complete this topic RSV Immunizations Under 20 Months Aged Out No longer eligible b ased on patient's age to complete this topic Procedures Procedure Name Priority Date/Time Associated Diagnosis Comments BONE DENSITY/DEXA Routine 03/13/2025 1:1 9 PM CDT Other specified personal risk factors, not elsewhere classified from Last 3 Months or Most Recently Relevant to Health Maintenance Results * BONE DENSITY/DEXA (03/13/2025 1:19 PM CDT) Anatomical Region Laterality Modality Bone Mammography 03/13/2025 2:05 PM CDT Impressions 03/13/2025 2:05 PM CDT IMPRESSION: WHO Classification: Osteopenia. RECOMMENDATIONS: All patients should ensure an adequate intake of dietary calcium and vitamin D. The NOF recommend adults under the age of 50 need 1000 mg of calcium and 400-800 IU of vitamin D daily. Effective therapy for the prevention and treatment of osteoporosis include bisphosphonates. FOLLOW-UP: People with diagnosed cases of osteoporosis or at high risk for fracture should have regular bone mineral density test. For patients eligible for Medicare, routine testing is allowed once every 2 years. Testing frequency can be increased to one year for patients who have rapidly progressing disease, those who are receiving or discontinuing medical therapy to restore bone mass, or have additional risk factors. Ordered By: RACHEAL CENTENO Interpreted By: Chacorta Downey, 03/13/2025 2:05 PM Narrative 03/13/2025 2:05 PM CDT [facility] [address] [place] [address] EXAMINATION: BONE DENSITY/DEXA INDICATIONS: Other specified personal risk factors, not elsewhere classified COMPARISON: None TECHNIQUE: DEXA bone mineral density evaluation was performed in the AP projection over the lumbar spine and both hips utilizing standard imaging techniques. FINDINGS: The BMD measured at the AP spine L1-L4 is 1.058 g/cm? with a T-score of 0.1. The BMD measured at the left femoral neck is 0.680 g/cm? with a T-score of -1.5. The BMD measured at the left hip is 0.943 g/cm? with a T-score of 0.0. The BMD measured at the right femoral neck is 0.709 g/cm? with a T-score of - 1.3. The BMD measured at the right hip is 0.955 g/cm? with a T-score of 0.1. FRAX 10-year fracture risk: Major Osteoporotic Fracture: 4.8% Hip Fracture: 0.8% Procedure Note Chacorta Downey MD - 03/13/2025 [facility] [address] [place] [address] EXAMINATION: BONE DENSITY/DEXA INDICATIONS: Other specified personal risk factors, not elsewhereclassified COMPARISON: None TECHNIQUE: DEXA bone mineral density evaluation was performed in the APprojection over the lumbar spine and both hips utilizing standard imagingtechniques. FINDINGS: The BMD measured at the AP spine L1-L4 is 1.058 g/cm? with a T-score of0.1. The BMD measured at the left femoral neck is 0.680 g/cm? with a T-score of-1.5. The BMD measured at the left hip is 0.943 g/cm? with a T-score of 0.0. The BMD measured at the right femoral neck is 0.709 g/cm? with a T-scoreof -1.3. The BMD measured at the right hip is 0.955 g/cm? with a T-score of 0.1. FRAX 10-year fracture risk: Major Osteoporotic Fracture: 4.8% Hip Fracture: 0.8% IMPRESSION: WHO Classification: Osteopenia. RECOMMENDATIONS: All patients should ensure an adequate intake of dietary calcium andvitamin D. The NOF recommend adults under the age of 50 need 1000 mg ofcalcium and 400-800 IU of vitamin D daily. Effective therapy for theprevention and treatment of osteoporosis include bisphosphonates. FOLLOW-UP: People with diagnosed cases of osteoporosis or at high risk for fractureshould have regular bone mineral density test. For patients eligible forMedicare, routine testing is allowed once every 2 years. Testing frequencycan be increased to one year for patients who have rapidly progressingdisease, those who are receiving or discontinuing medical therapy torestore bone mass, or have additional risk factors. Ordered By: RACHEAL CENTENO Interpreted By: Chacorta Downey, 03/13/2025 2:05 PM Racheal Centeno MD DEXA Final Result from Last 3 Months or Most Recently Relevant to Health Maintenance [facility] [address] Care Teams Chief Of Service Relationship Specialty Start Date End Date Anirudh Real MD [address] [place] [address] PCP - General 10/04/15
--- OUTSIDE RECORDS SUMMARY | 2025-11-12 13:34 | XMS_ITS | Continuity of Care Document ---
Author Organization [facility] ([facility]ult [facility]) Address [address] [place] [address] Care Team Providers Care Transmission Inspector Name Role Phone U DERMATOLOGY Pleating Supervisor SHILPI KERN Medicine Technologist Unavailable Assessment No assessment recorded. Plan of Treatment Reminders Order Date Submit Date Provider Last Modified By Organization Details Last Modified Time Details Appointments ANY 15 2025 11:15A Guillermo Miranda MD Not available Not available Not available Lab uric acid, serum or plasma 2024 025 [facility], [address] [facility], [facility] [address], [place], [address], 10/06/2025 08:40:09 CBC w/ auto diff 2024 025 [facility], [address] [facility], [facility] [address], [place], [address], 10/06/2025 08:40:10 Referral None recorded. Procedures None recorded. Surgeries None recorded. Imaging XR, ankle - Pain, medial malleolus 2024 025 [facility] (Imaging), [address] [place] [address], [address], 10/27/2025 10:30:09 Medication Orders meloxicam 7.5 mg tablet 2024 025 [facility] [id number] [facility], [address] [facility], [place], [address], 10/05/2025 12:32:09 ketorolac 60 mg/2 mL intramusc ular solution 2024 025 [email or web address] Not available 11/02/2025 11:51:44 Patient TargetsNo targets recorded. Patient Instructions Encounter Date Encounter Id Patient Instructions Last Modified By Organization Details Last Modified Time 10/05/2025 [id number] A healthy lifestyle: care instructions [email or web address] Not available 10/05/2025 12:12:00 Ophthalmology as referred Xray Labs CT scan report from [facility] Note from Dr Kern (Nephrology) ER report from [facility] Meloxicam Follow up in 4 weeks oajao Not available 10/05/2025 14:10:25 Reason for Referral None Reported. Results Created Date Observation Date Name Description Value Unit Range Abnormal Flag Note LastModifiedBy Organization Detail LastModifiedTime 10/05/2010/06/2025 URIC ACID uric acid 6.6 mg/dL 3.1-7. 9 Steven moses t for gout patie nts: <6.0 Not Available [facility] ([facility]) [address] [place], [address], 10/06/2025 08:40:09 10/05/20 25 10/06/2025 CBC WITH DIFFE RENTI AL/PL ATELE T WBC 8.5 x10e3 /uL 3.4-10 .8 Not Available [facility] ([facility]) [address] [place], [address], 10/06/2025 08:40:10 10/05/20 25 10/06/2025 CBC WITH DIFFE RENTI AL/PL ATELE T RBC 5.03 x10e6 /uL 3.77-5 .28 Not Available [facility] ([facility]) [address] [place], [address], 10/06/2025 08:40:10 10/05/20 25 10/06/2025 CBC WITH DIFFE RENTI AL/PL ATELE T hemoglobin 14.0 g/dL 11.1-1 5.9 Not Available [facility] ([facility]) [address] [facility], [place], [address], 10/06/2025 08:40:10 10/05/20 25 10/06/2025 CBC WITH DIFFE RENTI AL/PL ATELE T hematocrit 43.6 % 34.0-4 6.6 Not Available [facility] ([facility]) [address] [facility], [place], [address], 10/06/2025 08:40:10 10/05/20 25 10/06/2025 CBC WITH DIFFE RENTI AL/PL ATELE T MCV 87 fL 79-97 Not Available [facility] ([facility]) [address] [facility], [place], [address], 10/06/2025 08:40:10 10/05/20 25 10/06/2025 CBC WITH DIFFE RENTI AL/PL ATELE T MCH 27.8 pg 26.6-3 3.0 Not Available [facility] ([facility]) [address] [place], [address], 10/06/2025 08:40:10 10/05/20 25 10/06/2025 CBC WITH DIFFE RENTI AL/PL ATELE T MCHC 32.1 g/dL 31.5-3 5.7 Not Available [facility] ([facility]) [address] [place], [address], 10/06/2025 08:40:10 10/05/20 25 10/06/2025 CBC WITH DIFFE RENTI AL/PL ATELE T RDW 13.6 % 11.7-1 5.4 Not Available [facility] ([facility]) [address] [facility], [place], [address], 10/06/2025 08:40:10 10/05/20 25 10/06/2025 CBC WITH DIFFE RENTI AL/PL ATELE T platelets 278 x10e3 /uL 150-45 0 Not Available [facility] ([facility]) [address] [facility], [place], [address], 10/06/2025 08:40:10 10/05/20 25 10/06/2025 CBC WITH DIFFE RENTI AL/PL ATELE T neutrophils 51 % notest ab. Not Available [facility] ([facility]) [address] [facility], [place], [address], 10/06/2025 08:40:10 10/05/20 25 10/06/2025 CBC WITH DIFFE RENTI AL/PL ATELE T lymphs 37 % notest ab. Not Available [facility] ([facility]) [address] [facility], [place], [address], 10/06/2025 08:40:10 10/05/20 25 10/06/2025 CBC WITH DIFFE RENTI AL/PL ATELE T monocytes 10 % notest ab. Not Available [facility] ([facility]) [address] [facility], [place], [address], 10/06/2025 08:40:10 10/05/20 25 10/06/2025 CBC WITH DIFFE RENTI AL/PL ATELE T eos 1 % notest ab. Not Available [facility] ([facility]) [address] [place], [address], 10/06/2025 08:40:10 10/05/20 25 10/06/2025 CBC WITH DIFFE RENTI AL/PL ATELE T basos 1 % notest ab. Not Available [facility] ([facility]) [address] [place], [address], 10/06/2025 08:40:10 10/05/20 25 10/06/2025 CBC WITH DIFFE RENTI AL/PL ATELE T neutrophils (absolute) 4.4 x10e3 /uL 1.4-7. 0 Not Available [facility] ([facility]) [address] [place], [address], 10/06/2025 08:40:10 10/05/20 25 10/06/2025 CBC WITH DIFFE RENTI AL/PL ATELE T lymphs (absolute) 3.1 x10e3 /uL 0.7-3. 1 Not Available [facility] ([facility]) [address] [facility], [place], [address], 10/06/2025 08:40:10 10/05/20 25 10/06/2025 CBC WITH DIFFE RENTI AL/PL ATELE T monocytes(ab solute) 0.9 x10e3 /uL 0.1-0. 9 Not Available [facility] ([facility]) [address] [facility], [place], [address], 10/06/2025 08:40:10 10/05/20 25 10/06/2025 CBC WITH DIFFE RENTI AL/PL ATELE T eos (absolute) 0.1 x10e3 /uL 0.0-0. 4 Not Available [facility] ([facility]) [address] [facility], [place], [address], 10/06/2025 08:40:10 10/05/20 25 10/06/2025 CBC WITH DIFFE RENTI AL/PL ATELE T baso (absolute) 0.0 x10e3 /uL 0.0-0. 2 Not Available [facility] ([facility]) [address] [facility], [place], [address], 10/06/2025 08:40:10 10/05/20 25 10/06/2025 CBC WITH DIFFE RENTI AL/PL ATELE T immature granulocytes 0 % notest ab. Not Available [facility] ([facility]) [address] [facility], [place], [address], 10/06/2025 08:40:10 10/05/20 25 10/06/2025 CBC WITH DIFFE RENTI AL/PL ATELE T immature grans (abs) 0.0 x10e3 /uL 0.0-0. 1 Not Available [facility] ([facility]) [address], [place], [address], 10/06/2025 08:40:10 10/27/20 25 10/27/2025 XR, ankle No observ ation record ed. [facility] [address], [place], [address], 11/06/2025 09:59:07 Result Notes None recorded. Problems Name Problem SNOMED Code Status Onset Date Resolution Date Notes Provider Name and Address Organization Details Recorded Time Osteoarthriti s of hip 747496325 Active Not Available [facility] 3 16:48:03 Chronic obstructive pulmonary disease 22000641 Active Not Available [facility] 3 16:48:03 Essential hypertension 26274291 Active Not Available [facility] 3 16:48:03 Acute exacerbation of chronic obstructive pulmonary disease 505053287 Active Ruth Miranda MD Attn: Accounting ,[address] [place], [place], [address] [place] [address] , [place] - [facility] 5 14:19:36 Dyspnea 050247717 Active Ruth Miranda MD Attn: Accounting ,[address] [facility], [place], [place], [address] [place] [address] , [place] - [facility] 5 14:19:36 Hypertensive disorder 79039003 Active Ruth Miranda MD Attn: Accounting ,[address] [facility], [place], [address] [place] [address] , [place] - [facility] 5 14:19:36 Osteoarthriti s of knee 875900357 Active Not Available [facility] 3 16:48:03 Type 2 diabetes mellitus 79982322 Active 2019 Not Available [facility] 3 16:48:03 Pruritic disorder of skin Active 2023 Racheal Centeno MD Attn: Accounting ,[address] [facility], [place], [place], [address] [place] [address] , [place] [facility] 4 16:04:45 Venous insufficiency of lower limb 897548492 Active 2023 Racheal Centeno MD Attn: Accounting ,[address] [facility], [place], [address] , [place] - [facility] 4 16:05:13 Disorder of skin 33094614 Active 2023 Racheal Centeno MD Attn: Accounting ,[address] [facility], [place], [address] , [place] [facility] 4 16:13:51 Screening for malignant neoplasm of breast Active 2023 Racheal Centeno MD Attn: Accounting ,[address] [facility], [place], [address] , [place] [facility] 4 12:18:31 History of polyp of colon 631578382 Active 2024 Racheal Centeno MD Attn: Accounting ,[address] [facility], [place], [address] , [place] [facility] 5 10:18:25 At increased risk of osteoporosis 393633810 Active 2024 Racheal Centeno MD Attn: Accounting ,[address] [facility], [place], [address] , [place] [facility] 5 10:19:47 Postmenopausa l osteopenia 053852842 Active 2024 Racheal Centeno MD Attn: Accounting ,[address] [facility], [place], [address] , [place] [facility] 5 17:16:05 Prurigo nodularis 49977321 Active 2024 Ruth Miranda MD Attn: Accounting ,[address] [facility], [place], [address] , [place] [facility] 5 16:51:40 Osteopenia 444788155 Active 2024 Ruth Miranda MD Attn: Accounting ,[address] [facility], [place], [address] , [place] [facility] 5 16:55:43 Chronic kidney disease stage 3A 269243574 Active 2024 Ruth Miranda MD Attn: Accounting ,[address] [facility], [place], [address] , [facility] 13:32:23 Notes:Some problems listed i n Documents: #[id number], #[id number], #[id number] could not be added to this patient's chart. Please review these documents and add these problems to the patient's chart manually as needed. Problem Notes None recorded. Procedures Surgical History Date Name Laterality Status Provider Name and Address Organization Details Recorded Time Diabetic Foot Exam completed Ruth Miranda MD Attn: Accounting, [place], [address], [facility] 07/05/2025 14:40:19 Imaging Results None recorded. Procedure Notes None recorded. Medical Equipment None Reported. Allergies Allergen ID Allergen Name Allergen Category Reaction Reaction Severity Criticality Documentation Date Start Date Code Code System Note Provider Name and Address Organization Details Recorded Time 19480125 Product containin g penicilli n (product) medicatio n dizziness mild Not available 07/05/2025 75610 8001 SNOMED Ruth Miranda MD Attn: Accountin g,[address] [facility], [place], [address], [facility] 14:19:00 243000 folic acid medicatio n Not available Not available Not available 10/04/20252024 4511 RxNorm Not Available jaylen - External Data Service - prod 5 17:01:45 21944 Substance with sulfonami de structure and antibacte rial mechanism of action (substanc e) medicatio n Not available Not available Not available 01/30/2015 75535 8003 SNOMED ISATU Finn, [facility] 5 16:17:57 Medications Name Sig Start [...] TWICE A DAY 03/04 completed stopped by speciali st due to upset stomach Not Available [...] active Not Available Not Available Not Avai labterry MashalotTouch Ultra Test strips USE ONE STRIP IN [...] t Available Vitals Date Recorded Body height Heart rate Respiratory rate Body temperature Oxygen saturation Systolic And Diastolic Provider Name and Address Organization Details Last Updated DateTime 5 163.83 cm 78 /min 18 /min 98 [degF] 93 % 116/70 mm[Hg] Jennifer Arizmendi [place] - [facility] 5 11:44:44 Social History Question Answer Notes LastModified by Organizat ion Details LastModified Time Tobacco Smoking Status Former Smoker Stopped 2011 0.5-1 PPD Ruth Miranda MD Attn: [place], [address], [facility] - [facility] 07/05/2025 14:31:48 Are You Blind Or Do [...] Or The Highest Degree You Have Received? LG74998-6 Information not available 11/10/2023 Are There Any [...] anxious, or unable to sleep at night)? [id number] Information not available 04/23/2021 Family History Relationship Description Onset Age of this Age Resolved Age Notes LastModified by Organization Details LastModified Time Brother Harmful pattern of use of alcohol [email or web address] Not available 01/30 16:49:54 Notes:Brother -- Lumbar Canc er Medical History Condition Response Have you had a mammogram in the last yea r? Y Diabetes Y High Blood Pressure Y COPD Y High Cholesterol Y Gynecological HistoryNo gynecological history recorded. Obstetrics History GPAL:G 0 P 0 0 0 0 Immunizations Vaccine Type Date Status Note Provider Nam e and Address Organization Details Recorded Time COVID-19, mRNA, LNP-S, PF, 100 mcg/0.5mL dose or 50 mcg/0.25mL dose 1 completed Not Available [facility] 11/29/2023 21:18:42 COVID-19, mRNA, LNP-S, PF, 100 mcg/0.5mL dose or 50 mcg/0.25mL dose 1 completed Not Available [facility] 11/29/2023 21:18:42 COVID-19, mRNA, LNP-S, PF, 100 mcg/0.5mL dose or 50 mcg/0.25mL dose 1 completed Not Available [facility] 11/29/2023 21:18:42 Influenza, split virus, quadrivalent, preservative 6 completed Not Available [facility] 12/10/2019 02:50:31 influenza, unspecified formulation 3 completed Ruth Miranda MD Attn: Accounting,[address] [facility], [place], [place], [address] [place] [address], [place] - [facility] 07/05/2025 14:19:23 Influenza, split virus, quadrivalent, preservative 8 completed Not Available [facility] 12/10/2019 02:34:52 Influenza, split virus, quadrivalent, preservative 8 completed Not Available [facility] 12/10/2019 02:40:19 Influenza, split virus, quadrivalent, preservative 0 completed Anirudh Real MD Attn: Accounting,[address] [place], [address] [place] [address], [place] [facility] 02/01/2020 10:54:28 Influenza, split virus, quadrivalent, preservative 0 completed Cam Alvarez [place], [place] [facility] 02/03/2020 10:45:11 Influenza, split virus, quadrivalent, preservative 0 completed Cam Alvarez [place], [place] [facility] 09/20/2020 10:22:49 Influenza, split virus, quadrivalent, preservative 1 completed Anirudh Real MD Attn: Accounting,[address] [place], [address], [place] [facility] 11/07/2021 12:36:05 Pneumococcal conjugate PCV 13 2 completed Ninfa Santana [place], [place] [facility] 04/08/2022 13:04:12 Tdap 2 completed Anirudh Real MD Attn: Accounting,[address] [place], [address], [place] [facility] 05/08/2022 10:48:43 pneumococcal polysaccharide PPV23 2 completed Cam Alvarez [place], [place] [facility] 06/10/2022 10:30:19 Influenza, high-dose, trivalent, PF 5 completed Jennifer Arizmendi [place], [place] [facility] 11/02/2025 12:42:43 Past Encounters Encounter ID Performer Location Encounter Start Date Encounter Closed Date Diagnosis/Indication Diagnosis SNOMED-CT Code Diagnosis ICD10 Code Diagnosis IMO Codes Diagnosis Note [id number] Ruth Miranda MD [facility] (Adult Med) [address] [place] [address] 10/05/2025 10:26:40 10/09/2025 12:09:50 Type 2 diabetes mellitus 18345741 E11.9 Labs 07/05/2025 HBA1C 6.5%On Atorvastat in 10 mg PO daily and Tradjenta 5 mg PO daily Overweight in adulthood with body mass index of 25 or more but less than 30 528281992 E66.3 Z68.29 2142761487 Overweight 379318402 E66 .3 Acute ankle pain 4401192 011 9105 M25.571 86989408 The DDX. includes a sprain and Gout Kidney finding 373669298 R39.9 7478897 Health Concerns Section Related Observation LastModified by Organization Detai ls LastModified Time None Recorded Concern Status LastModified by Organization Details LastModified Time None Recorded Payers Encounter Date Sequence Insurance Name Policy Number Policy Jose Covered Member ID Jose Member ID Guarantor Name 10/05/2025 1 [facility] (MEDICARE REPLACEMENT/A DVANTAGE - HMO) [id number] Maki Raines [id number] Maki Raines Notes Date Note Type Note Provider Name and Address Organization Details Recorded Time 10/05/2025 text/html Diabetes F/URepo rted by PatientHPIFor [...] the emergency room referred her to the car dryer, Dr Kern who ordered a MRI. She was claustrophobic and the ordering physician may have placed an order for a different test. Unfortunately, I have no official records from her ER visit other than discharge instructions that list a renal cyst and a UTI. She says that she was also told by the ER that she had kidney stones and that Dr Kern mentioned a liver mass.. She has a daughter who is ill and injured her left foot a few months ago, she cannot explain what happened to the right ankle but she woke up with pain and swelling four days ago. Ruth Miranda MD Attn: Accounting,[address] [facility], [place], [address], [facility] 10/05/2025 14:11:34 OBGyn Episode No OBEpisode recorded.
--- OUTSIDE RECORDS SUMMARY | 2025-11-12 13:35 | XMS_ITS | Continuity of Care Document ---
Author Organization [facility] (Adult Med) Address [address] [place] [address] Care Team Providers Care Linux System Administrator Name Role Phone [facility] DERMAT[facility] Hot Dipper SHILPI SWAN Assistant Oceanographer Unavailable Assessment No assessment recorded. Plan of Treatment Reminders Order Date Submit Date Provider Last Modified By Organization Details Last Modified Time Details Appointments ANY 15 026 11:15AM Ruth Miranda MD Not available Not available Not available Lab HbA1c (hemogl obin A1c), blood 025 026 oajao [facility], [address] [place] [address], [address], [place], [address], 11/02/2025 12:25:25 lipid panel, serum 025 026 oajao [facility], [address] [place] [address], [address], [place], [address], 11/02/2025 12:25:25 Referral None recorde d. Procedures None recorde d. Surgeries None recorde d. Imaging None recorde d. Medication Orders None recorde d. Patient TargetsNo targets recorded. Patient Instructions Encounter Date Encounter Id Patient Instructions Last Modified By Organization Details Last Modified Time 11/02/2025 [id number] learning about type 2 diabetes oajao Not [...] 2025 CT scan and ER reports from [facility] MRI (Scheduled) Labs in December, Follow up in 3 months and PRN oajao Not available 11/02/2025 12:26:37 Reason for Referral None Reported. Results Created Date Observation Date Name Description Value Unit Range Abnormal Flag Note LastModifiedBy Organization Detail LastModifiedTime 10/05/2010/06/2025 URIC ACID uric acid 6.6 mg/dL 3.1-7. 9 Steven moses t for gout patie nts: <6.0 Not Available [facility] ([facility]) [address] [place], [address], 10/06/2025 08:40:09 10/05/20 25 10/06/2025 CBC WITH DIFFE RENTI AL/PL ATELE T WBC 8.5 x10e3 /uL 3.4-10 .8 Not Available [facility] ([facility]) [address] [place], [address], 10/06/2025 08:40:10 10/05/20 25 10/06/2025 CBC WITH DIFFE RENTI AL/PL ATELE T RBC 5.03 x10e6 /uL 3.77-5 .28 Not Available [facility] ([facility]) [address] [place], [address], 10/06/2025 08:40:10 10/05/20 25 10/06/2025 CBC WITH DIFFE RENTI AL/PL ATELE T hemoglobin 14.0 g/dL 11.1-1 5.9 Not Available [facility] ([facility]) [address] [facility], [place], [address], 10/06/2025 08:40:10 10/05/20 25 10/06/2025 CBC WITH DIFFE RENTI AL/PL ATELE T hematocrit 43.6 % 34.0-4 6.6 Not Available [facility] ([facility]) [address] [facility], [place], [address], 10/06/2025 08:40:10 10/05/20 25 10/06/2025 CBC WITH DIFFE RENTI AL/PL ATELE T MCV 87 fL 79-97 Not Available [facility] ([facility]) [address] [facility], [place], [address], 10/06/2025 08:40:10 10/05/20 25 10/06/2025 CBC WITH DIFFE RENTI AL/PL ATELE T MCH 27.8 pg 26.6-3 3.0 Not Available [facility] ([facility]) [address] [facility], [place], [address], 10/06/2025 08:40:10 10/05/20 25 10/06/2025 CBC WITH DIFFE RENTI AL/PL ATELE T MCHC 32.1 g/dL 31.5-3 5.7 Not Available [facility] ([facility]) [address] [facility], [place], [address], 10/06/2025 08:40:10 10/05/20 25 10/06/2025 CBC WITH DIFFE RENTI AL/PL ATELE T RDW 13.6 % 11.7-1 5.4 Not Available [facility] ([facility]) [address] [place], [address], 10/06/2025 08:40:10 10/05/20 25 10/06/2025 CBC WITH DIFFE RENTI AL/PL ATELE T platelets 278 x10e3 /uL 150-45 0 Not Available [facility] ([facility]) [address] [facility], [place], [address], 10/06/2025 08:40:10 10/05/20 25 10/06/2025 CBC WITH DIFFE RENTI AL/PL ATELE T neutrophils 51 % notest ab. Not Available [facility] ([facility]) [address] [facility], [place], [address], 10/06/2025 08:40:10 10/05/20 25 10/06/2025 CBC WITH DIFFE RENTI AL/PL ATELE T lymphs 37 % notest ab. Not Available [facility] ([facility]) [address] [facility], [place], [address], 10/06/2025 08:40:10 10/05/20 25 10/06/2025 CBC WITH DIFFE RENTI AL/PL ATELE T monocytes 10 % notest ab. Not Available [facility] ([facility]) [address] [facility], [place], [address], 10/06/2025 08:40:10 10/05/20 25 10/06/2025 CBC WITH DIFFE RENTI AL/PL ATELE T eos 1 % notest ab. Not Available [facility] ([facility]) [address] [facility], [place], [address], 10/06/2025 08:40:10 10/05/20 25 10/06/2025 CBC WITH DIFFE RENTI AL/PL ATELE T basos 1 % notest ab. Not Available [facility] ([facility]) [address] [facility], [place], [address], 10/06/2025 08:40:10 10/05/20 25 10/06/2025 CBC WITH DIFFE RENTI AL/PL ATELE T neutrophils (absolute) 4.4 x10e3 /uL 1.4-7. 0 Not Available [facility] ([facility]) [address] [facility], [place], [address], 10/06/2025 08:40:10 10/05/20 25 10/06/2025 CBC WITH DIFFE RENTI AL/PL ATELE T lymphs (absolute) 3.1 x10e3 /uL 0.7-3. 1 Not Available [facility] ([facility]) [address] [facility], [place], [address], 10/06/2025 08:40:10 10/05/20 25 10/06/2025 CBC WITH DIFFE RENTI AL/PL ATELE T monocytes(ab solute) 0.9 x10e3 /uL 0.1-0. 9 Not Available [facility] ([facility]) [address] [facility], [place], [address], 10/06/2025 08:40:10 10/05/20 25 10/06/2025 CBC WITH DIFFE RENTI AL/PL ATELE T eos (absolute) 0.1 x10e3 /uL 0.0-0. 4 Not Available [facility] ([facility]) [address] [facility], [place], [address], 10/06/2025 08:40:10 10/05/20 25 10/06/2025 CBC WITH DIFFE RENTI AL/PL ATELE T baso (absolute) 0.0 x10e3 /uL 0.0-0. 2 Not Available [facility] ([facility]) [address] [facility], [place], [address], 10/06/2025 08:40:10 10/05/20 25 10/06/2025 CBC WITH DIFFE RENTI AL/PL ATELE T immature granulocytes 0 % notest ab. Not Available [facility] ([facility]) [address] [place], [address], 10/06/2025 08:40:10 10/05/20 25 10/06/2025 CBC WITH DIFFE RENTI AL/PL ATELE T immature grans (abs) 0.0 x10e3 /uL 0.0-0. 1 Not Available [facility] ([facility]) [address], [place], [address], 10/06/2025 08:40:10 10/27/20 25 10/27/2025 XR, ankle No observ ation record ed. [facility] [address], [place], [address], 11/06/2025 09:59:07 Result Notes None recorded. Problems Name Problem SNOMED Code Status Onset Date Resolution Date Notes Provider Name and Address Organization Details Recorded Time Osteoarthriti s of hip 068000316 Active Not Available [facility] 3 16:48:03 Chronic obstructive pulmonary disease 66511831 Active Not Available [facility] 3 16:48:03 Essential hypertension 01982238 Active Not Available [facility] 3 16:48:03 Acute exacerbation of chronic obstructive pulmonary disease 502714514 Active Ruth Miranda MD Attn: Accounting ,[address], [place], [address] [place] [address] , [place] - [facility] 5 14:19:36 Dyspnea 396509421 Active Ruth Miranda MD Attn: Accounting ,[address] [place], [place], [address] [place] [address] , [place] [facility] 5 14:19:36 Hypertensive disorder 03965457 Active Ruth Miranda MD Attn: Accounting ,[address] [facility], [place], [place], [address] [place] [address] , [place] [facility] 5 14:19:36 Osteoarthriti s of knee 933421141 Active Not Available [facility] 3 16:48:03 Type 2 diabetes mellitus 16907391 Active 2019 Not Available [facility] 3 16:48:03 Pruritic disorder of skin Active 2023 Racheal Centeno MD Attn: Accounting ,[address], [place], [address] [place] [address] , [place] [facility] 4 16:04:45 Venous insufficiency of lower limb 427107563 Active 2023 Racheal Centeno MD Attn: Accounting ,[address] [facility], [place], [address] , [place] [facility] 4 16:05:13 Disorder of skin 38240173 Active 2023 Racheal Centeno MD Attn: Accounting ,[address] [facility], [place], [address] , [place] [facility] 4 16:13:51 Screening for malignant neoplasm of breast Active 2023 Racheal Centeno MD Attn: Accounting ,[address] [facility], [place], [address] , [place] [facility] 4 12:18:31 History of polyp of colon 038615680 Active 2024 Racheal Centeno MD Attn: Accounting ,[address] [facility], [place], [address] , [place] [facility] 5 10:18:25 At increased risk of osteoporosis 849206668 Active 2024 Rcaheal Centeno MD Attn: Accounting ,[address] [facility], [place], [address] , [place] [facility] 5 10:19:47 Postmenopausa l osteopenia 596636095 Active 2024 Racheal Centeno MD Attn: Accounting ,[address] [facility], [place], [address] , [place] [facility] 5 17:16:05 Prurigo nodularis 59150531 Active 2024 Ruth Miranda MD Attn: Accounting ,[address] [facility], [place], [address] , [place] [facility] 5 16:51:40 Osteopenia 802504548 Active 2024 Ruth Miranda MD Attn: Accounting ,[address] [facility], [place], [address] , [place] [facility] 5 16:55:43 Chronic kidney disease stage 3A 367589896 Active 2024 Ruth Miranda MD Attn: Accounting ,[address] [facility], [place], [address] , [facility] 13:32:23 Notes:Some problems listed i n Documents: #[id number], #[id number], #[id number] could not be added to this patient's chart. Please review these documents and add these problems to the patient's chart manually as needed. Problem Notes None recorded. Procedures Surgical History Date Name Laterality Status Provider Name and Address Organization Details Recorded Time Diabetic Foot Exam completed Ruth Miranda MD Attn: Accounting, [facility], [place], [address], [facility] 07/05/2025 14:40:19 Imaging Results None recorded. Procedure Notes None recorded. Medical Equipment None Reported. Allergies Allergen ID Allergen Name Allergen Category Reaction Reaction Severity Criticality Documentation Date Start Date Code Code System Note Provider Name and Address Organization Details Recorded Time 19480125 Product containin g penicilli n (product) medicatio n dizziness mild Not available 07/05/2025 81889 8001 SNOMED Ruth Miranda MD Attn: Accountin g,[address] [facility], [place], [address], [facility] 14:19:00 070138 folic acid medicatio n Not available Not available Not available 10/04/20252024 4511 RxNorm Not Available jaylen - External Data Service - prod 5 17:01:45 38372 Substance with sulfonami de structure and antibacte rial mechanism of action (substanc e) medicatio n Not available Not available Not available 01/30/2015 35833 8003 SNOMED ISATU Finn, [facility] 5 16:17:57 Medications Name Sig Start [...] Updated DateTime 5 163.83 cm 27.1 kg/m2 74445.9 3 g 76 /min 94 % 18 /min 98.4 [degF] 110/60 mm[Hg] Jennifer Arizmendi [place] [facility] 11:55:34 Social History Question Answer Notes LastModified by Organizat ion Details LastModified Time Tobacco Smoking Status Former Smoker Stopped 2011 0.5-1 PPD Ruth Miranda MD Attn: KARELY RANDALL , [place], [address], [facility] 07/05/2025 14:31:48 Are You Blind [...] Or The Highest Degree You Have Received? KC48980-3 Information not available 11/10/2023 Are There Any [...] anxious, or unable to sleep at night)? [id number] Information not available 04/23/2021 Family History Relationship [...] 50 mcg/0.25mL dose 1 completed Not Available [facility] 11/29/2023 21:18:42 COVID-19, mRNA, LNP-S, PF, 100 mcg/0.5mL dose or 50 mcg/0.25mL dose 1 completed Not Available [facility] 11/29/2023 21:18:42 COVID-19, mRNA, LNP-S, PF, 100 mcg/0.5mL dose or 50 mcg/0.25mL dose 1 completed Not Available [facility] 11/29/2023 21:18:42 Influenza, split virus, quadrivalent, preservative 6 completed Not Available [facility] 12/10/2019 02:50:31 influenza, unspecified formulation 3 completed Ruth Miranda MD Attn: Accounting,[address] [place], [address], [place] [facility] 07/05/2025 14:19:23 Influenza, split virus, quadrivalent, preservative 8 completed Not Available [facility] 12/10/2019 02:34:52 Influenza, split virus, quadrivalent, preservative 8 completed Not Available [facility] 12/10/2019 02:40:19 Influenza, split virus, quadrivalent, preservative 0 completed Anirudh Real MD Attn: Accounting,[address] [place], [address], [place] [facility] 02/01/2020 10:54:28 Influenza, split virus, quadrivalent, preservative 0 completed Cam Alvarez [place] null, [place] [facility] 02/03/2020 10:45:11 Influenza, split virus, quadrivalent, preservative 0 completed Cam Alvarez [place], [place] [facility] 09/20/2020 10:22:49 Influenza, split virus, quadrivalent, preservative 1 completed Anirudh Real MD Attn: Accounting,[address] [place], [address], [place] [facility] 11/07/2021 12:36:05 Pneumococcal conjugate PCV 13 2 completed Ninfa Santana [place], [place] [facility] 04/08/2022 13:04:12 Tdap 2 completed Anirudh Real MD Attn: Accounting,[address] [place], [address], [place] [facility] 05/08/2022 10:48:43 pneumococcal polysaccharide PPV23 2 completed Cam Alvarez [place], [place] [facility] 06/10/2022 10:30:19 Influenza, high-dose, trivalent, PF 5 completed Jennifer Arizmendi [place], [place] [facility] 11/02/2025 12:42:43 Past Encounters Encounter ID Performer Location Encounter Start Date Encounter Closed Date Diagnosis/Indication Diagnosis SNOMED-CT Code Diagnosis ICD10 Code Diagnosis IMO Codes Diagnosis Note [id number] MD Maik Rajan (Adult Med) [address] [place] [phone] 10/05/2025 10:26:40 10/09/2025 12:09:50 Type 2 diabetes mellitus 94379174 E11.9 Labs 07/05/2025 HBA1C 6.5%On Atorvastat in 10 mg PO daily and Tradjenta 5 mg PO daily Overweight in adulthood with body mass index of 25 or more but less than 30 303577407 E66.3 Z68.29 0801012168 Overweight 480380800 E66 .3 Acute ankle pain 5348692 011 9105 M25.571 [id number] The DDX. includes a sprain and Gout Kidney finding 176906627 R39.9 8821785 [id number] MD Maik Rajan (Adult Med) [address] [place] [phone] 11/02/2025 11:45:30 11/03/2025 12:02:07 Adult health examination 098363437 Z00.00 Health Risk Assessment collected and reviewed Influenza vaccination given 2763224122 9109 Z23 88816932 Type 2 alfie betes mellitus 21813048 E11.9 Labs OV 10/05/2025 Labs 07/05/2025 HBA1C 6.5%On Atorvastat in 10 mg PO daily and Tradjenta 5 mg PO daily Kidney lesion 6451181704 9100 N28.9 566453 9 mm L. renal lesion in the mid pole on the CT scan.MRI needed and ordered by her nephrologi .DDX; mass, scar, cyst Chronic ki dney disease stage 3A 471108736 N18.31 1534722119 Finding of clavicle structure 612053108 Q74.[address] chest 02/25/2025 Health Concerns Section Related Observation LastModified by Organization Detai ls LastModified Time None Recorded Concern Status LastModified by Organization Details LastModified Time None Recorded Payers Encounter Date Sequence Insurance Name Policy Number Policy Jose Covered Member ID Jose Member ID Guarantor Name 11/02/2025 1 [facility] (MEDICARE REPLACEMENT/A DVANTAGE - HMO) [id number] Maki Raines [id number] Maki Raines Notes Date Note Type Note Provider Name and Address Organization Details Recorded Time 11/02/2025 text/html MAW 2Reported by PatientSocial/Behavi oral HistoryFor diet and nutrition, patient reportshealthy diet,discussed [...] past year,no fall since last visit, andno dizziness/vertigo.RO S as noted in the [facility] Wellness visitDid you get the CT? Ms Raines is doing well, she is here for her MAWV and in the interim, she has rescheduled her MRI to evaluate the renal lesion.She wonders why the distal part of the right clavicle is more prominent. Ruth Miranda MD Attn: Accounting,[address] [facility], [place], [address], [place] [facility] 11/02/2025 13:35:08 OBGyn Episode No OBEpisode recorded.
--- NOTE | 2025-11-12 13:41 | ECG_ITS ---
Test Date: 2025-11-12 13:47:22 Measurements Intervals [place] Rate: 107 P: 65 CO: 163 QRS: -78 QRSD: 88 T: 56 QT: 328 QTc: 438 Interpretive Statements SINUS TACHYCARDIA WITH OCCASIONAL VENTRICULAR PREMATURE COMPLEXES POSSIBLE RIGHT VENTRICULAR CONDUCTION DELAY ANTERIOR INFARCT, AGE INDETERMINATE INFERIOR INFARCT, AGE INDETERMINATE BASELINE ARTIFACT- I, II, III, AVR, AVL, AVF, V1-V2 ABNORMAL ECG No previous ECG available for comparison Electronically Signed On 11-12-2025 17:17:08 SALON SHAMPOO ASSISTANT by Amado Vance D.O.
[2025-11-12 14:02] LABS: Hematocrit 46.2 % (37.0-47.0); Hemoglobin 15.6 g/dL (12.0-15.0); Immature Granulocyte Percent A 0.3 % (0-0.5); Lymphocytes Absolute Auto 3.23 K/mm3 (0.9-3.2); Mean Corpuscular HGB Conc 33.8 g/dl (32-36); Mean Corpuscular Hemoglobin 28.3 pg (26-34); Mean Corpuscular Volume 83.7 fl (80-100); Nucleated Red Blood Cells Absolute Auto 0.000 K/mm3 (0.0-0.012); Nucleated Red Blood Cells Perc 0.0 % (0.0-0.2); Platelet Count Result 272 k/mm3 (150-375); Red Blood Count 5.52 M/mm3 (4.2-5.4); White Blood Count 9.2 K/mm3 (4.5-10.0)
[2025-11-12 14:14] LABS: Alanine Aminotransferase 26 U/L (6-35); Albumin Level 4.7 g/dL (3.5-5.1); Alkaline Phosphatase 154 U/L (38-126); Anion Gap 12 mmol/L (4-12); Aspartate Amino Transferase 36 U/L (14-36); Bilirubin,Total 0.9 mg/dL (0.2-1.3); Blood Urea Nitrogen 19 mg/dL (7-17); Calcium 10.0 mg/dL (8.4-10.2); Carbon Dioxide 24 mmol/L (22-30); Chloride 102 mmol/L (98-107); Estimated CRCL calculation 39 ml/min; Estimated Glomerular Filt Rate 47; Glucose 140 mg/dL (65-110); Potassium 3.4 mmol/L (3.4-5.0); Sodium 138 mmol/L (137-145); Total Protein 8.5 g/dL (6.3-8.2)
[2025-11-12 14:38] LABS: Influenza A QL RT-PCR Negative (Negative); Influenza B QL RT-PCR Negative (Negative); RSV RNA, RT-PCR Negative (Negative); SARS-CoV-2 RNA PCR Negative (Negative)
--- OUTSIDE RECORDS SUMMARY | 2025-11-12 14:42 | XMS_ITS | Clinical Summary ---
Author Organization [facility] Listar Address [address] [place] [address] Care Team Providers Care Rubber Tire And Tubes Supervisor Name Role Phone Racheal Centeno MD Primary Care Provider [phone] Source Comments [facility],non-owned Affiliates and Associated Physician Practices is amultiple site organization consisting of ambulatory clinics and hospital sitesin [place]. This disclosure is being madepursuant to the Care Everywhere program and may not contain all information available regarding this patient. Last updated 18.[facility] Allergies Active Allergy Reactions Criticality Noted Date [...] on file Legal Sex Female 6:21 PM SLURRY TANK TENDER Gender Identity Not on file Sexual Orientation Not on file Last Filed Vital Signs Vital Sign Reading Time Taken Comments Blood Pressure 138/89 01/20/2015 10:14 AM SLURRY TANK TENDER Pulse 86 01/20/2015 10:45 AM SLURRY TANK TENDER Temperature 36.7 C (98.1 F) 01/20/2015 10:14 AM SLURRY TANK TENDER Respiratory Rate 16 01/20/2015 10:45 AM SLURRY TANK TENDER Oxygen Saturation 98% 01/20/2015 10:14 AM SLURRY TANK TENDER Inhaled Oxygen Concentration - - Weight 75.8 kg (167 lb) 01/20/2015 10:14 AM SLURRY TANK TENDER Height 162.6 cm (5' 4) 01/20/2015 10:14 AM SLURRY TANK TENDER Body Mass Index 28.67 01/20/2015 10:14 AM SLURRY TANK TENDER Plan of Treatment Upcoming Encounters Date Type Department Care Team (Late st Contact Info) Description 03/28/2026 9:00 AM CDT Office Visit [facility] - Dermatology [address] [place] [address], [place] [address] Deonte Merrill MD [address] [place] [address] 3 [place] [address] Health Maintenance Due Date Last [...] topic Insurance MANAGED MEDICARE ADV Care Teams Rub[employer] T[employer] And Tubes Supervisor Relationship Specialty Start Date End Date Racheal Centeno MD [address] [place] [address] PCP - General Gastroenterology 07/12/25
--- OUTSIDE RECORDS SUMMARY | 2025-11-12 14:42 | XMS_ITS | Clinical Summary ---
Author Organization [facility] Address [address] [place] [address] Care Team Providers Care Electric Dolly Operator Name Role Phone Anirudh Real MD Primary Care Provider [phone] Social History Tobacco Use Types Packs/Day Years [...] 2:05 PM Narrative 03/13/2025 2:05 PM CDT [facility] [place] [address] EXAMINATION: BONE DENSITY/DEXA INDICATIONS: Other specified personal [...] Procedure Note Chacorta Downey MD - 03/13/2025 [facility] [place] [address] EXAMINATION: BONE DENSITY/DEXA INDICATIONS: Other specified personal [...] Recently Relevant to Health Maintenance [facility] [address] Care Teams Electric Dolly Operator Relationship Specialty Start Date End Date Anirudh Real MD [address] [place] [address] PCP - General 10/04/15
--- OUTSIDE RECORDS SUMMARY | 2025-11-12 14:42 | XMS_ITS | Clinical Summary ---
Author Organization [facility] Address [address] [place] [address] Phone Care Team Providers Care Band Maker Name Role Phone Anirudh Real MD Primary Care Provider [phone] Allergies Active Allergy Reactions Criticality Noted Date [...] Description 09/05/2025 2:00 PM CDT Office Visit [facility] [address] [facility], [address] [place] [address] Shaq Kern MD Renal mass (Primary Dx); Essential (primary) hypertension; Stage 3a chronic kidney disease 09/05/2025 Orders Only [facility] [address] [facility] [address] [place] [address] Shaq Kern MD Renal mass (Primary Dx) [...] st Contact Info) Description 01/02/2026 2:40 PM FINISHER MERCHANT PRODUCTS Office Visit [facility] [address] [facility] [address] [place] [address] Shaq Kern MD [facility] [address] [place], [place] [id number] Health Maintenance Due Date Last Done Comments Diabetic Foot Exam 1961 Ophthalmology Exam 1961 Pneumococcal PPSV23/PCV13 65 + Years / High and Highest Risk (2 of 4 - PPSV23, PCV20, or PCV21) 06/03/2022 04/08/2022 COVID-19 Vaccine (4 - 2024- season) 2025 11/05/2021, 03/08/2021, 02/08/2021 Influenza Vaccine (#1) 2025 09/11/2013 Insurance [employer] MEDICARE Care Teams Band Maker Relationship Specialty Start Date End Date Anirudh Real MD [address] [place] [address] PCP - General Family Medicine 08/31/25
--- OUTSIDE RECORDS SUMMARY | 2025-11-12 14:42 | XMS_ITS | Encounter Summary ---
Author Organization [facility] Address [address] [address] Care Team Providers Care Bacon De Rinder Name Role Phone Racheal Centeno MD Primary Care Provider Encounter Details Date Type Department Care Team (Late st Contact Info) Description 01/06/2025 Telephone [facility] - Dermatology [address] [place] [address], [place] [phone] Deonte Merrill MD [address] [place] [address] 3 [place] [address] Social History Tobacco Use Types Packs/Day Years Used Date Smoking Tobacco: Former Cigarettes 0 Q uit: 12/20/2011 Alcohol Use Standard Drinks/Week Comments No 0 (1 standard drink = 0.6 oz pur e alcohol) Comments Unknown Sex and Gender Information Value Date Recorded Sex Assigned at Not on file Legal Sex Female 6:21 PM MONITORING TECH Gender Identity Not on file Sexual Orientation Not on file documented as of this encounter Progress Notes * Jen Fowler - 07/26/2025 2:37 PM CDT Medication Prior Authorization: Medication: Dupixent 300mg/2ml pen Status: Approved 07/20/25 through 11/22/25 Submitted via: Cover My Meds (Mcclelland: [id number]) Insurance: [employer] (p: [phone]) (f: [phone]) Case/Reference number: ID: [id number] RX Card Billing Info: BIN: [id number] PCN: [id number] GROUP: COS ID: [id number] JOSIANE approval notice uploaded to media tab. Routed approval details to [facility] Specialty. Jen Fowler- Pharmacy Furnace Stock Inspector (Dermatology) * Jen Fowler - 01/06/2025 2:28 PM CST Medication Prior Authorization: Medication: Dupixent 300mg/2ml pen Status: Approved 01/06/25 through 07/06/25 Submitted via: Cover My Meds (Mcclelland: [id number]) Insurance: [employer] (p: [phone]) (f: [phone]) Case/Reference number: ID: [id number] RX Card Billing Info: BIN: [id number] PCN: [id number] GROUP: COS ID: [id number] PA approval notice uploaded to media tab. Routed approval details to [facility] Specialty and Aria. Jen Fowler- Pharmacy Furnace Stock Inspector (Dermatology) TORING TECH documented in this encounter Miscellaneous Notes * Telephone Encounter - Jen Fowler - 07/20/2025 1:16 PM CDT PA submitted forcontinuation of therapy Dupixent 300mg/2ml pen maintenance dose of 300mg every 2 weeks via [facility] currently waiting on decision. Mcclelland: [id number] Provider:[id number] Jen Fowler (Jonak) [facility] - Pharmacy Furnace Stock Inspector * Telephone Encounter - Jen Fowler - 01/06/2025 2:05 PM CST PA submitted fornew start Dupixent 300mg/2ml pen for loading dose of 600mg and maintenance dose of 300mg every 2 weeks via [facility] currently waiting on decision. Mcclelland: [id number] Provider:[id number] (Desirae) Jen Fowler [employer]owl Trimmer - Pharmacy Furnace Stock Inspector TORING TECH documented in this encounter Plan of Treatment Upcoming Encounters Date Type Department Care Team (Late st Contact Info) Description 03/28/2026 9:00 AM CDT Office Visit [facility] Derm[facility]ology [address] [place] [address], [place] [address] Deonte Merrill MD [address] [place] [address] 3 [place] [id number] documented as of this encounter Visit Diagnoses Not on filedocumented in this encounter Care Teams Bacon De Rinder Relationship Specialty Start [place] [address] [place] [phone] PCP - General Gastroenterology 07/12/25 documented as of this encounter
[2025-11-12] MEDS: SODIUM CHLORIDE 0.9% IV 500 ML 999 ML IV CONT (15:06)
--- NOTE | 2025-11-12 15:08 | ED.WEAKNESS ---
HPI - Weakness General Chief complaint: Weakness Stated complaint: weakness Time Seen by Provider: 11/12/25 14:11 Source: patient Mode of arrival: ambulatory Limitations: no limitations History of Present Illness HPI Narrative: This is a 75 year old female that presents to the ER for generalized weakness. Reports cough, shortness of breath. History of COPD. Reports she was recently told she has a mass in her liver at another hospital. She is not able to tolerate MRI and has not had any further evaluation of this yet. Denies abdominal pain, vomiting, diarrhea. Related Data Allergies Allergy/AdvReac Type Severity Reaction Status Date / Time PENICILLIN Allergy Intermediate Hives Uncoded 11/12/25 13:41 SULFA Allergy Intermediate Hives Uncoded 11/12/25 13:41 Review of Systems Review of Systems: All systems reviewed & are unremarkable except as noted in HPI and below PMFSH Past Medical History Medical History (Updated 11/12/25 @ 17:53 by Marixa Brown PA-C) Diabetes mellitus Hyperlipidemia Hypertension COPD (chronic obstructive pulmonary disease) Exam Narrative: GENERAL: Well-appearing, well-nourished, and in no acute distress. HEAD: Normocephalic, atraumatic. EYES: EOMI. ENT: Nares clear, no rhinorrhea or epistaxis. Mucous membranes moist. Oropharynx without tonsillar hypertrophy exudate or other lesions NECK: Supple. No adenopathy or masses. CHEST: No respiratory distress. Lung sounds diminished with diffuse wheezing. No rales or rhonchi HEART: Regular rate and rhythm. No murmur heard. Normal peripheral pulses. ABDOMEN: Soft, nontender, nondistended, normal active bowel sounds. EXTREMITIES: Normal range of motion. No edema. SKIN: Warm, dry, no rash. NEURO: No focal deficits. Alert and oriented x3. PSYCH: Normal mood and affect Course Vital Signs Vital signs: Vital Signs Temperature 98 F 11/12/25 13:33 Pulse Rate 119 H 11/12/25 13:33 Respiratory Rate 17 11/12/25 13:33 Blood Pressure 181/100 H 11/12/25 13:33 Pulse Oximetry 98 11/12/25 13:33 Oxygen Delivery Room Air 11/12/25 13:33 Temperature 98 F 11/12/25 13:33 Pulse Rate 85 11/12/25 17:45 Respiratory Rate 18 11/12/25 17:45 Blood Pressure 143/87 H 12/21/25 17:45 Pulse Oximetry 92 11/12/25 17:45 Oxygen Delivery Nasal Cannula 11/12/25 17:05 Oxygen Flow Rate 1 11/12/25 17:05 [facility] Narrative Medical decision making narrative: Patient presents emergency department for shortness of breath, cough, weakness. She is afebrile and nontoxic appearing. Tachycardic upon arrival, this normalized with IV fluids. Cbc without leukocytosis. Shows hemoconcentration. Metabolic panel also with mild evidence of dehydration. Urine with 6-10 white blood cells, this will be sent for culture. Patient is not currently have any urinary symptoms. Influenza and COVID screens are negative. CTA chest PE with abdomen pelvis obtained for further evaluation. No evidence of PE. Severe emphysema. Atherosclerotic changes of thoracic aorta. Patient and family updated on workup. Agree with plan of care. Will follow-up with PCP Differential Diagnosis Differential Diagnosis: COPD exacerbation, pneumonia, dehydration, PE, cancer, UTI Lab Data [facility] Lab Attestation statement: I personally reviewed the patient's lab results. 11/12/25 13:55 11/12/25 13:55 Labs: Lab Results 11/12/25 11/12/25 Range/Units 13:55 17:15 WBC 9.2 (4.5-10.0) K/mm3 RBC 5.52 H (4.2-5.4) M/mm3 Hgb 15.6 H (12.0-15.0) g/dL Hct 46.2 (37.0-47.0) % MCV 83.7 (80-100) fl MCH 28.3 (26-34) pg MCHC 33.8 (32-36) g/dl RDW 14.1 (11.5-14.5) % Plt Count 272 (150-375) k/mm3 MPV 9.3 (7.4-10.4) fl Immature Gran % (Auto) 0.3 (0-0.5) % Neut % (Auto) 54.3 (45.5-73.1) % Lymph % (Auto) 35.2 (18.3-44.2) % [place] % (Auto) 9.6 H (2.6-8.5) % Eos % (Auto) 0.2 (0-4.4) % Baso % (Auto) 0.4 (0.2-1.2) % Lymph # (Auto) 3.23 H (0.9-3.2) K/mm3 [place] # (Auto) 0.9 H (0.1-0.6) K/mm3 Eos # (Auto) 0.0 (0-0.3) K/mm3 Baso # (Auto) 0.0 (0.0-0.1) K/mm3 Abs Immat Gran (auto) 0.03 (0.00-0.031) K/mm3 Absolute Neuts (auto) 5.0 (1.3-6.7) K/mm3 Absolute Nucleated RBC 0.000 (0.0-0.012) K/mm3 Nucleated RBC % 0.0 (0.0-0.2) % PT 13.4 (11.1-14.7) Seconds INR 1.0 APTT 25.8 (22.3-36.8) Seconds Sodium 138 (137-145) mmol/L Potassium 3.4 (3.4-5.0) mmol/L Chloride 102 (98-107) mmol/L Carbon Dioxide 24 (22-30) mmol/L Anion Gap 12 (4-12) mmol/L BUN 19 H (7-17) mg/dL Creatinine 1.14 H (0.7-1.0) mg/dL Estim Creat Clear Calc 39 ml/min Estimated GFR 47 L (59 - ) Glucose 140 H (65-110) mg/dL Calcium 10.0 (8.4-10.2) mg/dL Total Bilirubin 0.9 (0.2-1.3) mg/dL AST 36 (14-36) U/L ALT 26 (6-35) U/L Alkaline Phosphatase 154 H (38-126) U/L NT-Pro-B Natriuret Pep 60 (19.9-100) pg/mL Total Protein 8.5 H (6.3-8.2) g/dL Albumin 4.7 (3.5-5.1) g/dL Urine Color Yellow (Yellow) Urine Appearance Clear (Clear) Urine pH 5.5 (5.0-9.0) Ur Specific [place] > 1.045 H (1.001-1.035) Urine Protein Negative (Negative) mg/dL Urine Glucose (UA) Negative (Negative) mg/dL Urine Ketones Trace H (Negative) mg/dL Ur Blood (Man) Negative (Negative) Urine Nitrate Negative (Negative) Urine Bilirubin Negative (Negative) Urine Urobilinogen 1.0 (<2.0) mg/dL Leukocyte Esterase Rfl 1+ H (Negative) TAN/UL Urine RBC 3-5 H (0-2) /hpf Urine WBC 6-10 H (0-3) /hpf Ur Squamous Epith Cells Few (Few) /hpf Urine Bacteria None seen /hpf Urine Casts 3-5 Influenza A (RT-PCR) Negative (Negative) Influenza B (RT-PCR) Negative (Negative) RSV (RT-PCR) Negative (Negative) SARS-CoV-2 RNA (RT-PCR) Negative (Negative) Imaging Data Radiologist's impression: ITS Impressions Chest X-Ray 11/12/25 15:04 IMPRESSION: 1. Significant emphysema involving upper two thirds of both lungs. Severe atherosclerotic aorta. Chest/Abdomen/Pelvis CTA 11/12/25 16:42 IMPRESSION: 1. No evidence of pulmonary emboli. Evidence of severe emphysema of lungs with pulmonary arterial hypertension. 2. Significant atherosclerotic changes of thoracic aorta. 3. No acute findings in the upper abdomen and pelvis. Midline paraumbilical hernia containing a loop of transverse colon. No evidence of bowel obstruction. 4. Normal size liver and spleen without focal lesions of the liver. ECG Data EKG #1: ECG completion date: 11/12/25 normal rate, sinus rhythm, no ST changes and normal QT Critical Care Time Critical Care Time Critical Care Time: No Discharge Plan Discharge Clinical Impression: COPD exacerbation, Dehydration Patient Disposition: Home Condition: Improved Instructions: Antibiotic Form, Dehydration (ED), COPD (Chronic Obstructive Pulmonary Disease) (ED) Additional Instructions: Return to the emergency department for worsening symptoms, or any other concerns You are being treated for a COPD exacerbation and some dehydration. There are no masses seen on your liver today Remain well-hydrated, get plenty of rest. Take Tylenol or Motrin [id number] for pain as needed. Take steroid and antibiotic as prescribed Follow up with primary care doctor Patient Language: Wallisian Prescriptions: New levofloxacin 500 mg tablet 500 mg PO DAILY 3 Days Qty: 3 0RF prednisone 20 mg tablet 40 mg PO DAILY 4 Days Qty: 8 0RF Follow-up/Referrals: Ruben,Oladele, M.D. [Primary Care Provider]
[2025-11-12 15:12] LABS: INR 1.0; Prothrombin Time 13.4 Seconds (11.1-14.7)
[2025-11-12 15:13] LABS: Partial Thromboplastin Time 25.8 Seconds (22.3-36.8)
[2025-11-12] MEDS: MAGNESIUM SULF 2 GM/WATER 50ML 2 GM/50 ML BAG IVPB (15:18)
[2025-11-12] MEDS: IPRATROPIUM 0.5 MG/ALBUTEROL SULFATE 2.5 MG (BASE) AMPUL.NEB 3 ML INHALATION (15:30)
[2025-11-12 15:35] LABS: NT Pro B Type Natriuretic Pept 60 pg/mL (19.9-100)
[2025-11-12 17:26] LABS: Add Urine Microscopic? YES; Appearance Urine Clear (Clear); Glucose Urine UA Negative (Negative); Leukocyte Esterase Ur 1+ LEU/UL (Negative); Nitrate Urine Negative (Negative); Specific Grav Ur > 1.045 (1.001-1.035)
== END 2025-11-12 18:26 | disposition home or self-care (01) ==
PROVIDERS: Family Medicine; Emergency Provider Physician Assistant; PCP Internal Medicine Infectious Disease
DX: J44.1 Chronic obstructive pulmonary disease with (acute) exacerbation (principal); E86.0 Dehydration; E11.9 Type 2 diabetes mellitus without complications; E78.5 Hyperlipidemia, unspecified; I10 Essential (primary) hypertension; Z20.822 Contact with and (suspected) exposure to COVID-19
CPT/HCPCS: 36415; 71046; 71275; 74177; 80053; 81001; 83880; 85025; 85610; 85730; 87086; 87637; 93005; 94640; 96365; 96366; 96375; 99284; J2919; J3475; J7040; Q9967